=== PATIENT | female | born 1995 | race Caucasian/White ===

== ENCOUNTER 2018-02-01 00:01 | Emergency (ER) | payer BC, SELFPAY ==
[2018-02-01 00:02] VITALS: BP 130/66; PULSE 107; RESP 18; TEMP 36; O2SAT 97; BMI 21.8
--- NOTE | 2018-02-01 00:11 | CT_ITS ---
STUDY: CT ABDOMEN AND PELVIS WITHOUT CONTRAST REASON FOR EXAM: Female, 22 years old. Left flank pain. RADIATION DOSAGE (If Supplied By Facility): CTDIvol = ( 6.12 ) mGy, DLP = ( 313.29 ) mGycm TECHNIQUE: Transaxial images were obtained from the dome of the diaphragm to the symphysis pubis without oral contrast, and without intravenous contrast. Sagittal and coronal images were reconstructed. Individualized dose optimization techniques were used for this CT. COMPARISON: None. FINDINGS: The visualized lung bases are unremarkable. The visualized portions of the heart are within normal limits. Normal liver. Normal gallbladder and extrahepatic biliary system. Normal spleen. Normal pancreas. Normal bilateral adrenal glands. Normal right kidney. Normal left kidney. Normal visualized stomach. Normal small intestine. Normal colon. The appendix is visualized on axial images 113-121 and it appears normal.. Normal abdominal aorta. Normal inferior vena cava. Normal retroperitoneum. Normal urinary bladder. Left ovary is enlarged. There is an approximately 2.4 cm left ovarian cyst. There is a small amount of free fluid in the posterior cul-de-sac of the pelvis. Normal abdominal wall. Normal osseous structures. CT/Abdomen/Pelvis without Cont IMPRESSION: Enlarged left ovary, containing a 2.4 cm left ovarian cyst. Consider follow-up pelvic ultrasound. Small amount of free fluid in the posterior cul-de-sac pelvis. Otherwise, normal noncontrast CT scan. No demonstrated urinary calculi or hydronephrosis. No evidence for diverticulitis or appendicitis. Electronically Signed: Asad Roger MD at 1:53 EST , Service support ,
--- NOTE | 2018-02-01 00:15 | ED.DCSUM_ITS ---
- ER Visit Summary Date of Service: 02/01/18 Chief Complaint: Left flank pain History of Present Illness: The patient is a 22 F presenting with left flank pain. She states it started on Wednesday. She states it started suddenly but gradually worsened. She has nausea with no vomiting. She denies constipation or diarrhea. Denies urinary complaints. Denies vaginal bleeding or discharge. Denies fever. She has not had these symptoms in the past. Denies other complaints. Physical Examination: Vitals are stable. Patient is afebrile. Alert no acute distress. HEENT exam is unremarkable. Neck is supple. Lungs are clear and equal bilaterally. Heart is regular rate and rhythm. Abdomen is soft left lower quadrant tenderness with no rebound or guarding Back: Left CVA tenderness Extremities are unremarkable. Skin is warm and dry. Remainder of exam is unremarkable. Emergency Department Course and Treatment: Patient declined pain medication. Urinalysis shows occult blood, 0-5 white blood cells, 0-5 red blood cells. HCG negative. CT abdomen pelvis shows enlarged left ovary, containing a 2.4 cm left ovarian cyst. Consider follow-up pelvic ultrasound. Small amount of free fluid in the posterior cul-de-sac pelvis. Otherwise, normal noncontrast CT scan. No demonstrated urinary calculi or hydronephrosis. No evidence for diverticulitis or appendicitis. Findings were discussed with the patient and she will follow- up with her [facility]. She is resting comfortably on reevaluation. She is advised to take NSAIDs for pain. Advised return to ED for worsening complaints. Disposition: Discharge home Impression: Left ovarian cyst This note was generated with [employer] dictation software. It may contain incorrect words, spelling, and punctuation that were not noted in review of the chart prior to signing ED Disposition - Plan for ED Patient: Chief Complaint: Flank Pain Referrals: Murtaza Mcclure MD [Primary Care Provider] -
[2018-02-01 00:32] LABS: Color, Urine Yellow (Yellow); Glucose, Dipstick Normal (Normal); Ketone-Dipstick Negative (Negative); Leukocyte Esterase-Dipstick Negative /ul (Negative); Nitrite-Dipstick Negative (Negative); Occult Blood-Urine 50 /ul (Negative); Protein-Dipstick Negative (Negative); Specific Gravity, Urine 1.015 (1.002-1.030); Urine Bilirubin Dipstick Negative (Negative); Urine Clarity Sl. Cloudy (Clear); Urine Urobilinogen Normal (Normal)
[2018-02-01 00:45] LABS: Amorphous Sediment 2+; Bacteria RARE /hpf (None Seen); Mucous, Urine RARE /hpf (<or=2+); Red Blood Cells-Urine 0-5 SEEN /hpf (0-5); Squamous Epithelial Cells - UA 0-5 SEEN /hpf (5-10); White Blood Cells 0-5 SEEN /hpf (0-5)
[2018-02-01 01:02] LABS: Pregnancy, Serum, hCG Quali. NEGATIVE Negative (0-9 Nonpreg)
--- NOTE | 2018-02-01 02:16 | ED.DEP ---
ED Disposition - Plan for ED Patient: Chief Complaint: Flank Pain Instructions: ED Cyst Ovarian Referrals: Murtaza Mcclure MD [Primary Care Provider] -
[2018-02-01 02:25] VITALS: BP 113/71; PULSE 80; RESP 16; O2SAT 95
--- OUTSIDE RECORDS SUMMARY | 2018-03-20 03:54 | XMS RPT_ITS ---
:1995 Author Organization OHIP Care Team Providers Name Role Phone EMELY MCDANIEL Attending Unavailable MARIJA ALVES (HEADWAITER/HEADWAITRESS) Attending Unavailable VANNESSA MEDELLIN (HEADWAITER/HEADWAITRESS) Attending Unavailable AMA MOSS) Attending Unavailable AMA MOSS) Referring Unavailable YOANA HODGES (KIM) Attending Unavailable AMA MOSS) Referring Unavailable CHIP FITZPATRICK (PA) Referring Unavailable TRACIE MURRAY Attending Unavailable EMELY MCDANIEL Attending Unavailable TRACIE MURRAY Referring Unavailable EMELY MCDANIEL Attending Unavailable EMELY MCDANIEL Attending Unavailable uMrtaza Mcclure Primary Care Unavailable Carolee Ceja Attending Unavailable Nabeel Blevins PA-C Attending Unavailable Nabeel Blevins PA-C Referring Unavailable Murtaza Mcclure Primary Care Unavailable PROBLEMS PROBLEMS DATE TYPE CONDITION / CODE ATTENDING STATUS SOURCE 01/31/[address], NA Active [facility] unspecified site / [facility] [place] M67.40(ICD-10) Repository 08/13/2017 Active Pain in left wrist NA Active [facility] / M25.532(ICD-10) [facility] [place] Repository 05/03/2017 Active Unknown / [place] Active [facility] UNK(Unknown) MCCLAIN, [facility] EMELY Repository PROCEDURES PROCEDURES No Procedure Records FoundRESULTS RESULTS CNOV Observed: 03/11/2018 Status: COMPLETED Source: [place] 11:20 AM [facility] REPOSITORY Office Visit (WOOB) TINY GARCIA ([id number]) 1995 F Date Time Provider Department 03/11/18 11:20 AM EMELY MCDANIEL WODERREK During your visit today, we recorded the following information about you: Blood pressure Weight 106/64 59 kg Emely Herrera MD 03/11/2018 11:43 AM Signed Tiny Sharma Jose is a 22 year old female who presents for discussion regarding treatment for endometriosis. Pt reports since last visit has had one episode of severe pain but did not go to ER. Pt reports still has pain with BMs and painful cycles. Pt previously was on ocps and did well. PAST MEDICAL HISTORY Diagnosis Date - Acne - Menarche 2007 7th Grade - Migraines pt reports blurred vision prior to PRICE - PMH - PAST MEDICAL HISTORY OF 11/29/03, --2011 normal color vision - Tobacco use PAST SURGICAL HISTORY Procedure Laterality Date - NONE FAMILY HISTORY Problem Relation Age of Onset - None Mother - None Father - Breast Cancer Maternal Grandmother - Ovarian cancer Maternal Aunt Living Social History Marital status: Single Spouse name: Years of education: Number of children: 0 Occupational History Occupation Employer Comment [employer]* STUDENT Social History Main Topics Smoking status: Former Smoker Packs/day: 0.50 Years: 0.00 Types: Cigarettes Quit date: 03/05/2017 Smokeless tobacco: Never Used Comment: *Currently using E-Cig Alcohol use: No Drug use: No Sexual activity: Yes Partners with: Male Current Outpatient Prescriptions: COMPOUNDED PRESCRIPTION Cock up wrist splint, left. To be worn nightly for wrist pain and numbness. Dx: left wrist pain CALCIUM CARBONATE/VITAMIN D3 (VITAMIN D-3 ORAL) Take by mouth. No current facility-administered medications for this visit. Allergies As of Date: 03/11/2018 (No Known Allergies) Fully Assessed 03/11/2018 REVIEW OF SYSTEMS Abdomen: no pain . Does have pain with BMs Bladder: no dysuria .. Expanded ROS: GENERAL: Negative for fever Allergies and current medication updated:Yes EXAM: BP 106/64 Wt 130 lb (59.0kg) LMP 02/24/2018 GENERAL: pleasant, female in no apparent distress HEENT: atraumatic and mucus membranes moist NECK: full range of motion DERMATOLOGY: Normal, without lesions, non-icteric and non-hirsute NEURO: alert and oriented x3,exam grossly non-focal ASSESSMENT AND PLAN: Encounter Diagnosis ICD-10-CM 1. Dysmenorrhea N94.6 2. Endometrioma N80.9 3. We reviewed mgmt options- discussed that she has not had surgery to confirm this diagnosis but based on exam and history endometriosis is likely diagnosis. We reviewed mgmt including surgical, hormonal or expectant. Pt would like to go back on ocps at this time- will try continuous. We reviewed h/o migraines- pt denies auras- states she only gets blurry vision occasionally during the headache- not prior to, pt denies auras and is not treated by neurologist for headaches. We reviewed contraindication to ocps and migraines with aura- but does not seem this is her case. 4. OCPs - sprintec ordered. Will notify office if any SE 5. If surgical mgmt indicated will send to Specialist like Dr. Shaheed Dailey - reviewed incase of extensive disease and need for resection 6. Repeat ultrasound in March to evaluate endometrioma 7. Call if worsening pain or other concerns Emely Herrera MD Referring Provider: SELF [[id number]] Allergies As of Date: 03/11/2018 (No Known Allergies) Date Reviewed: 03/11/2018 Reviewed by: Liset Hall Ma - Fully Assessed Reason for Visit: Follow Up [171] Primary Visit Diagnosis:Dysmenorrhea [N94.6] Other Visit Diagnosis:Endometrioma [N80.9] Order(s):norgestimate 0.25 mg-ethinyl estradiol 35 mcg (SPRINTEC) 0.25-35 mg-mcg per tabletTake only active pills discard inactive and start new pack immediatleyDisp: 4 PackageRfl: 5 Prescriptions as of 03/11/2018 Sig: NORGESTIMATE 0.25 MG-ETHINYL * Take only active pills discar* COMPOUNDED PRESCRIPTION Cock up wrist splint, left. T* VITAMIN D-3 ORAL Take by mouth. Problem List As Of Date 03/11/2018 Noted Resolved Acne Vulgaris: Inflammatory/Comedonal Grade III*INVALID FOR*07/25/2012 Striae Distensae: lower mid to lower back [L90.*INVALID FOR* Capsulitis [M77.9] INVALID FOR*07/25/2012 Headache [R51] INVALID FOR* Patellar tendinitis [M76.50] INVALID FOR*07/03/2011 Knee pain [M25.569] INVALID FOR*07/03/2011 Arcuate uterus [Q51.810] INVALID FOR* Dysmenorrhea [N94.6] INVALID FOR* Right shoulder pain [M25.511] INVALID FOR* Prescriptions ordered this encounter Disp Refills Start End NORGESTIMATE 0.25 MG-ETHINYL ESTRADI* 4 Pa* 5 03/11/2018 Sig: Take only active pills discard inactive and start new pack immediatley Disposition: Return in about 6 months (around 09/08/2018) for annual . Follow-up and Disposition History Recorded Encounter Status:Closed by EMELY MCCLAIN MD on 03/11/18 PROGRESS Observed: 03/11/2018 Status: COMPLETED Source: [place] 11:16 AM [facility] [place] REPOSITORY O ID: [id number] Author: Emely Mcclain Service: (none) Author Type: Physician Type: Progress Notes Filed: 03/11/2018 11:43 AM Note Text: Tiny Garcia is a 22 year old female who presents for discussion regarding treatment for endometriosis. Pt reports since last visit has had one episode of severe pain but did not go to ER. Pt reports still has pain with BMs and painful cycles. Pt previously was on ocps and did well. PAST MEDICAL HISTORY Diagnosis Date - Acne - Menarche 2007 7th Grade - Migraines pt reports blurred vision prior to PRICE - PMH - PAST MEDICAL HISTORY OF 11/29/03, 6- normal color vision - Tobacco use PAST SURGICAL HISTORY Procedure Laterality Date - NONE FAMILY HISTORY Problem Relation Age of Onset - None Mother - None Father - Breast Cancer Maternal Grandmother - Ovarian cancer Maternal Aunt Living Social History Marital status: Single Spouse name: Years of education: Number of children: 0 Occupational History Occupation Employer Comment [employer]* STUDENT Social History Main Topics Smoking status: Former Smoker Packs/day: 0.50 Years: 0.00 Types: Cigarettes Quit date: 03/05/2017 Smokeless tobacco: Never Used Comment: *Currently using E-Cig Alcohol use: No Drug use: No Sexual activity: Yes Partners with: Male Current Outpatient Prescriptions: COMPOUNDED PRESCRIPTION Cock up wrist splint, left. To be worn nightly for wrist pain and numbness. Dx: left wrist pain CALCIUM CARBONATE/VITAMIN D3 (VITAMIN D-3 ORAL) Take by mouth. No current facility-administered medications for this visit. Allergies As of Date: 03/11/2018 (No Known Allergies) Fully Assessed 03/11/2018 REVIEW OF SYSTEMS Abdomen: no pain . Does have pain with BMs Bladder: no dysuria .. Expanded ROS: GENERAL: Negative for fever Allergies and current medication updated:Yes EXAM: BP 106/64 Wt 130 lb (59.0kg) LMP 02/24/2018 GENERAL: pleasant, female in no apparent distress HEENT: atraumatic and mucus membranes moist NECK: full range of motion DERMATOLOGY: Normal, without lesions, non-icteric and non-hirsute NEURO: alert and oriented x3,exam grossly non-focal ASSESSMENT AND PLAN: Encounter Diagnosis ICD-10-CM 1. Dysmenorrhea N94.6 2. Endometrioma N80.9 3. We reviewed mgmt options- discussed that she has not had surgery to confirm this diagnosis but based on exam and history endometriosis is likely diagnosis. We reviewed mgmt including surgical, hormonal or expectant. Pt would like to go back on ocps at this time- will try continuous. We reviewed h/o migraines- pt denies auras- states she only gets blurry vision occasionally during the headache- not prior to, pt denies auras and is not treated by neurologist for headaches. We reviewed contraindication to ocps and migraines with aura- but does not seem this is her case. 4. OCPs - sprintec ordered. Will notify office if any SE 5. If surgical mgmt indicated will send to Specialist like Dr. Shaheed Dailey - reviewed incase of extensive disease and need for resection 6. Repeat ultrasound in March to evaluate endometrioma 7. Call if worsening pain or other concerns Emely Herrera MD PROGRESS Observed: 02/25/2018 Status: COMPLETED Source: [place] 11:40 AM [facility] REPOSIT[facility] HNO ID: [id number] Author: Emely Mcclain Service: (none) Author Type: Physician Type: Progress Notes Filed: 02/25/2018 11:58 AM Note Text: Tiny Garcia is a 22 year old female who presents for follow up after ultrasound. Pt had CT scan at [facility] 02/01/18 and then ultrasound for 3cm cyst and pelvic pain. Pt reports that today her pain is gone- pt feeling well. Pt reports menses are regular every 28 days- pt reports has h/o ovarian cyst even when taking OCPs previously. Pt declines BC at this time. Pt reports during menses she does have severe pain when having BM- denies constipation or diarrhea. Pt reports pain has been there since she started having menstrual cycles. Pt offers no other concerns today. PAST MEDICAL HISTORY Diagnosis Date - Acne - Menarche 2007 7th Grade - Migraines pt reports blurred vision prior to PRICE - H - PAST MEDICAL HISTORY OF 11/29/03, --2011 normal color vision - Tobacco use PAST SURGICAL HISTORY Procedure Laterality Date - NONE FAMILY HISTORY Problem Relation Age of Onset - None Mother - None Father - Breast Cancer Maternal Grandmother - Ovarian cancer Maternal Aunt Living Social History Marital status: Single Spouse name: Years of education: Number of children: 0 Occupational History Occupation Employer Comment [employer]* STUDENT Social History Main Topics Smoking status: Former Smoker Packs/day: 0.50 Years: 0.00 Types: Cigarettes Quit date: 03/05/2017 Smokeless tobacco: Never Used Comment: *Currently using E-Cig Alcohol use: No Drug use: No Sexual activity: Yes Partners with: Male Current Outpatient Prescriptions: COMPOUNDED PRESCRIPTION Cock up wrist splint, left. To be worn nightly for wrist pain and numbness. Dx: left wrist pain CALCIUM CARBONATE/VITAMIN D3 (VITAMIN D-3 ORAL) Take by mouth. No current facility-administered medications for this visit. Allergies As of Date: 02/25/2018 (No Known Allergies) Fully Assessed 02/02/2018 REVIEW OF SYSTEMS Abdomen: pain with BM during menses only. Bladder: no dysuria .. Expanded ROS: GENERAL: negative pain Allergies and current medication updated:Yes EXAM: BP 112/64 Wt 132 lb (59.9kg) LMP 02/24/2018 GENERAL: pleasant, female in no apparent distress HEENT: Normocephalic and atraumatic NECK: full range of motion DERMATOLOGY: Normal, without lesions, non-icteric and non-hirsute NEURO: alert and oriented x3,exam grossly non-focal ASSESSMENT AND PLAN: Encounter Diagnosis ICD-10-CM 1. Ovarian cyst, left N83.202 2. Dyschezia K59.00 3. Ultrasound results reviewed- possible endometrioma- ?? ENDOMETRIOSIS which could be cause of painful BM during menses. We reviewed hormonal therapy for possible Endometriosis- pt declines any type of hormonal treatment at this time. 4. Has repeat ultrasound scheduled in 8-12 weeks 5. Call if worsening symptoms Emely Herrera MD CNOV Observed: 02/25/2018 Status: COMPLETED Source: [place] 11:40 AM [facility] REPOSITORY Office Visit (WOOB) TINY GARCIA ([id number]) 1995 F Date Time Provider Department 02/25/18 11:40 AM EMELY MCDANIEL WOOB During your visit today, we recorded the following information about you: Blood pressure Weight Last Period 112/64 59.9 kg 02/24/18 Emely Herrera MD 02/25/2018 11:58 AM Signed Tiny Sharma Jose is a 22 year old female who presents for follow up after ultrasound. Pt had CT scan at [facility] 02/01/18 and then ultrasound for 3cm cyst and pelvic pain. Pt reports that today her pain is gone- pt feeling well. Pt reports menses are regular every 28 days- pt reports has h/o ovarian cyst even when taking OCPs previously. Pt declines BC at this time. Pt reports during menses she does have severe pain when having BM- denies constipation or diarrhea. Pt reports pain has been there since she started having menstrual cycles. Pt offers no other concerns today. PAST MEDICAL HISTORY Diagnosis Date - Acne - Menarche 2007 7th Grade - Migraines pt reports blurred vision prior to PRICE - PMH - PAST MEDICAL HISTORY OF 11/29/03, --2011 normal color vision - Tobacco use PAST SURGICAL HISTORY Procedure Laterality Date - NONE FAMILY HISTORY Problem Relation Age of Onset - None Mother - None Father - Breast Cancer Maternal Grandmother - Ovarian cancer Maternal Aunt Living Social History Marital status: Single Spouse name: Years of education: Number of children: 0 Occupational History Occupation Employer Comment [employer]* STUDENT Social History Main Topics Smoking status: Former Smoker Packs/day: 0.50 Years: 0.00 Types: Cigarettes Quit date: 03/05/2017 Smokeless tobacco: Never Used Comment: *Currently using E-Cig Alcohol use: No Drug use: No Sexual activity: Yes Partners with: Male Current Outpatient Prescriptions: COMPOUNDED PRESCRIPTION Cock up wrist splint, left. To be worn nightly for wrist pain and numbness. Dx: left wrist pain CALCIUM CARBONATE/VITAMIN D3 (VITAMIN D-3 ORAL) Take by mouth. No current facility-administered medications for this visit. Allergies As of Date: 02/25/2018 (No Known Allergies) Fully Assessed 02/02/2018 REVIEW OF SYSTEMS Abdomen: pain with BM during menses only. Bladder: no dysuria .. Expanded ROS: GENERAL: negative pain Allergies and current medication updated:Yes EXAM: BP 112/64 Wt 132 lb (59.9kg) LMP 02/24/2018 GENERAL: pleasant, female in no apparent distress HEENT: Normocephalic and atraumatic NECK: full range of motion DERMATOLOGY: Normal, without lesions, non-icteric and non-hirsute NEURO: alert and oriented x3,exam grossly non-focal ASSESSMENT AND PLAN: Encounter Diagnosis ICD-10-CM 1. Ovarian cyst, left N83.202 2. Dyschezia K59.00 3. Ultrasound results reviewed- possible endometrioma- ?? ENDOMETRIOSIS which could be cause of painful BM during menses. We reviewed hormonal therapy for possible Endometriosis- pt declines any type of hormonal treatment at this time. 4. Has repeat ultrasound scheduled in 8-12 weeks 5. Call if worsening symptoms Emely Herrera MD Referring Provider: SELF [[id number]] Allergies As of Date: 02/25/2018 (No Known Allergies) Date Reviewed: 02/25/2018 Reviewed by: Liset Hall Ma - Fully Assessed Reason for Visit: Follow Up [171] Primary Visit Diagnosis:Ovarian cyst, left [N83.202] Other Visit Diagnosis:Dyschezia [K59.00] Prescriptions as of 02/25/2018 Sig: COMPOUNDED PRESCRIPTION Cock up wrist splint, left. T* VITAMIN D-3 ORAL Take by mouth. Problem List As Of Date 02/25/2018 Noted Resolved Acne Vulgaris: Inflammatory/Comedonal Grade III*INVALID FOR*07/25/2012 Striae Distensae: lower mid to lower back [L90.*INVALID FOR* Capsulitis [M77.9] INVALID FOR*07/25/2012 Headache [R51] INVALID FOR* Patellar tendinitis [M76.50] INVALID FOR*07/03/2011 Knee pain [M25.569] INVALID FOR*07/03/2011 Arcuate uterus [Q51.810] INVALID FOR* Dysmenorrhea [N94.6] INVALID FOR* Right shoulder pain [M25.511] INVALID FOR* Encounter Status:Closed by EMELY MCCLAIN MD on 02/25/18 CNOV Observed: 02/02/2018 Status: COMPLETED Source: [place] 11:00 AM [facility] REPOSITORY Office Visit (WOOB) TINY GARCIA ([id number]) 1995 F Date Time Provider Department 02/02/18 11:00 AM TRACIE MURRAY During your visit today, we recorded the following information about you: Blood pressure Weight Last Period 114 59.5 kg 01/27/18 Tracie Murray MD 02/02/2018 11:48 AM Signed Tinycorinna Garcia is a 22 year old female who presents as a new patient for an ovarian cyst. HPI: Went to the ED yesterday on 02/01/18 for left flank pain. CTAP showed a 2.4 cm left ovarian cyst. Preg test negative. Pain started 4 days ago. Worsening. Describes it as a sharp pain. Located in LLQ and radiating into left flank and back. Constant pain. Nothing makes the pain better or worse. +Nausea, no vomiting. Tolerating PO. Has a good appetite. No fevers, chills, diarrhea, constipation, dysuria. Currently sexually active. Not using control. Trying to conceive. Has been trying to conceive for 10 months per chart review. G0. Partner does not have any children. Was on OCP's in the past. Cycles 28-30 day cycles. Bleeding lasts 4-5 days, heavy flow. PAST MEDICAL HISTORY Diagnosis Date - Acne - Menarche 2007 7th Grade - Migraines pt reports blurred vision prior to PRICE - PMH - PAST MEDICAL HISTORY OF 11/29/03, 07-26-2011 normal color vision - Tobacco use PAST SURGICAL HISTORY Procedure Laterality Date - NONE FAMILY HISTORY Problem Relation Age of Onset - None Mother - None Father - Breast Cancer Maternal Grandmother - Ovarian cancer Maternal Aunt Living Social History Marital status: Single Spouse name: Years of education: Number of children: 0 Occupational History Occupation Employer Comment [employer]* STUDENT Social History Main Topics Smoking status: Former Smoker Packs/day: 0.50 Years: 0.00 Types: Cigarettes Quit date: 03/05/2017 Smokeless tobacco: Never Used Comment: *Currently using E-Cig Alcohol use: No Drug use: No Sexual activity: Yes Partners with: Male Current Outpatient Prescriptions: CALCIUM CARBONATE/VITAMIN D3 (VITAMIN D-3 ORAL) Take by mouth. COMPOUNDED PRESCRIPTION Cock up wrist splint, left. To be worn nightly for wrist pain and numbness. Dx: left wrist pain No current facility-administered medications for this visit. Allergies As of Date: 02/02/2018 (No Known Allergies) Fully Assessed 02/02/2018 REVIEW OF SYSTEMS Abdomen: + abdominal pain, nausea. Denies vomiting, diarrhea, or constipation. Bladder: No dysuria, gross hematuria, urinary frequency, urinary urgency. Tomographic Tech: No bleeding or discharge. Expanded ROS: N/A Allergies and current medication updated:Yes EXAM: BP 114/74 Wt 131 lb 3.2 oz (59.5kg) LMP 01/27/2018 GENERAL: pleasant, female in no apparent distress HEENT: Normocephalic and atraumatic NECK: full range of motion DERMATOLOGY: Normal and without lesions CHEST: Normal inspiratory effort ABDOMEN: soft and no masses, +tenderness in LLQ, no rebounding, no guarding, no rigidity NEURO: exam grossly non-focal EXTREMITIES: normal ASSESSMENT AND PLAN: Encounter Diagnosis ICD-10-CM 1. Adnexal cyst N94.9 PELVIC US WHI 2. LLQ pain R10.32 PELVIC US WHI ? Pt well appearing and abdominal exam is not acute today ? CTAP in ED yesterday showed 2.4 cm left ovarian cyst ? Ordered pelvic US ? Discussed Tylenol, Motrin, heat for pain control ? Reviewed return precautions ? Will call with US results and further follow up DO Tracie Nevarez MD 02/04/2018 9:20 AM Signed Addended by: TRACIE MURRAY MD on: 02/04/2018 09:20 AM Modules accepted: Orders Referring Provider: SELF [[id number]] Allergies As of Date: 02/02/2018 (No Known Allergies) Date Reviewed: 02/02/2018 Reviewed by: Tracie Murray - Fully Assessed Reason for Visit: Ovarian Cyst [288] Primary Visit Diagnosis:Adnexal cyst [N94.9] Other Visit Diagnosis:LLQ pain [R10.32] Order(s):PELVIC US WHI [[id number]] Order #: [id number]. #:[id number]: 1 PELVIC US WHI [[id number]] Order #: [id number]: 1 FUTURE PELVIC US WHI [[id number]] Order #: [id number]: 1 Prescriptions as of 02/02/2018 Sig: VITAMIN D-3 ORAL Take by mouth. COMPOUNDED PRESCRIPTION Cock up wrist splint, left. T* Problem List As Of Date 02/02/2018 Noted Resolved Acne Vulgaris: Inflammatory/Comedonal Grade III*INVALID FOR*07/25/2012 Striae Distensae: lower mid to lower back [L90.*INVALID FOR* Capsulitis [M77.9] INVALID FOR*07/25/2012 Headache [R51] INVALID FOR* Patellar tendinitis [M76.50] INVALID FOR*07/03/2011 Knee pain [M25.569] INVALID FOR*07/03/2011 Arcuate uterus [Q51.810] INVALID FOR* Dysmenorrhea [N94.6] INVALID FOR* Right shoulder pain [M25.511] INVALID FOR* Level of Service: EST PATIENT VISIT LEVEL 3 [[id number]] Follow-up and Disposition History Recorded Letter Text Tracie Murray DO [facility] [address], [place] [address] 02/02/2018 RE: Tiny Garcia To Whom It May Concern: Tiny Garcia was absent from work on 02/02/2018 due to medical reasons and may return on 02/03/2018. Thank you for your understanding in this matter. Sincerely, Tracie Murray DO Encounter Status:Closed by TRACIE MURRAY MD on 02/02/18 PROGRESS Observed: 02/02/2018 Status: COMPLETED Source: [facility] 10:56 AM [facility] HNO ID: [id number] Author: Tracie Murray Service: (none) Author Type: Physician Type: Progress Notes Filed: 02/02/2018 11:48 AM Note Text: Tiny Garcia is a 22 year old female who presents as a new patient for an ovarian cyst. HPI: Went to the ED yesterday on 02/01/18 for left flank pain. CTAP showed a 2.4 cm left ovarian cyst. Preg test negative. Pain started 4 days ago. Worsening. Describes it as a sharp pain. Located in LLQ and radiating into left flank and back. Constant pain. Nothing makes the pain better or worse. +Nausea, no vomiting. Tolerating PO. Has a good appetite. No fevers, chills, diarrhea, constipation, dysuria. Currently sexually active. Not using control. Trying to conceive. Has been trying to conceive for 10 months per chart review. G0. Partner does not have any children. Was on OCP's in the past. Cycles 28-30 day cycles. Bleeding lasts 4-5 days, heavy flow. PAST MEDICAL HISTORY Diagnosis Date - Acne - Menarche 2007 7th Grade - Migraines pt reports blurred vision prior to PRICE - PMH - PAST MEDICAL HISTORY OF 11/29/03, 07-27-2011 normal color vision - Tobacco use PAST SURGICAL HISTORY Procedure Laterality Date - NONE FAMILY HISTORY Problem Relation Age of Onset - None Mother - None Father - Breast Cancer Maternal Grandmother - Ovarian cancer Maternal Aunt Living Social History Marital status: Single Spouse name: Years of education: Number of children: 0 Occupational History Occupation Employer Comment [employer]* STUDENT Social History Main Topics Smoking status: Former Smoker Packs/day: 0.50 Years: 0.00 Types: Cigarettes Quit date: 03/05/2017 Smokeless tobacco: Never Used Comment: *Currently using E-Cig Alcohol use: No Drug use: No Sexual activity: Yes Partners with: Male Current Outpatient Prescriptions: CALCIUM CARBONATE/VITAMIN D3 (VITAMIN D-3 ORAL) Take by mouth. COMPOUNDED PRESCRIPTION Cock up wrist splint, left. To be worn nightly for wrist pain and numbness. Dx: left wrist pain No current facility-administered medications for this visit. Allergies As of Date: 02/02/2018 (No Known Allergies) Fully Assessed 02/02/2018 REVIEW OF SYSTEMS Abdomen: + abdominal pain, nausea. Denies vomiting, diarrhea, or constipation. Bladder: No dysuria, gross hematuria, urinary frequency, urinary urgency. Tomographic Tech: No bleeding or discharge. Expanded ROS: N/A Allergies and current medication updated:Yes EXAM: BP 114/74 Wt 131 lb 3.2 oz (59.5kg) LMP 01/27/2018 GENERAL: pleasant, female in no apparent distress HEENT: Normocephalic and atraumatic NECK: full range of motion DERMATOLOGY: Normal and without lesions CHEST: Normal inspiratory effort ABDOMEN: soft and no masses, +tenderness in LLQ, no rebounding, no guarding, no rigidity NEURO: exam grossly non-focal EXTREMITIES: normal ASSESSMENT AND PLAN: Encounter Diagnosis ICD-10-CM 1. Adnexal cyst N94.9 PELVIC US WHI 2. LLQ pain R10.32 PELVIC US WHI ? Pt well appearing and abdominal exam is not acute today ? CTAP in ED yesterday showed 2.4 cm left ovarian cyst ? Ordered pelvic US ? Discussed Tylenol, Motrin, heat for pain control ? Reviewed return precautions ? Will call with US results and further follow up Tracie Murray, DO DISCHARGE INSTRUCTION Observed: 02/01/2018 Status: F Source: [place] 2:17 AM [facility] REPOSITORY [facility] Medical Records Department [address] [place] [address] Discharge Instruction 02/01/186 MR#: [id number] Acct: [id number] Name: ABBIETINY DOZIER Edith Rep #: [id number] : 1995 22 From: Carolee Ceja MD PCP: Murtaza Mcclure MD Status: REG ER ED Disposition - Plan for ED Patient: Chief Complaint: Flank Pain Instructions: ED Cyst Ovarian Referrals: Murtaza Mcclure MD [Primary Care Provider] - What to do if you have Problems For any increased pain, shortness of breath, bleeding, nausea or vomiting, chest pain, or any unexpected problems, contact your Primary Care Provider. Call [facility] ([phone]) or report to the closest Emergency Room. Call 911 if necessary. 02/01/18216 <Electronically signed by Carolee Ceja MD> Date Carolee Ceja MD Cosigner Signature (If Indicated): Date CC: Murtaza Mcclure MD EMERGENCY DEPARTMENT Observed: 02/01/2018 Status: F Source: [place] SUMMARY 2:16 AM [facility] Medical Records Department [address] [place] [address] Emergency Department Summary 02/01/18 0013 MR#: [id number] Acct: [id number] Name: TINY GARCIA Rep #: [id number] : 1995 22 From: Carolee Ceja MD PCP: Murtaza Mcclure MD Status: REG ER - ER Visit Summary Date of Service: 02/01/18 Chief Complaint: Left flank pain History of Present Illness: The patient is a 22 F presenting with left flank pain. She states it started on Wednesday. She states it started suddenly but gradually worsened. She has nausea with no vomiting. She denies constipation or diarrhea. Denies urinary complaints. Denies vaginal bleeding or discharge. Denies fever. She has not had these symptoms in the past. Denies other complaints. Physical Examination: Vitals are stable. Patient is afebrile. Alert no acute distress. HEENT exam is unremarkable. Neck is supple. Lungs are clear and equal bilaterally. Heart is regular rate and rhythm. Abdomen is soft left lower quadrant tenderness with no rebound or guarding Back: Left CVA tenderness Extremities are unremarkable. Skin is warm and dry. Remainder of exam is unremarkable. Emergency Department Course and Treatment: Patient declined pain medication. Urinalysis shows occult blood, 0-5 white blood cells, 0-5 red blood cells. HCG negative. CT abdomen pelvis shows enlarged left ovary, containing a 2.4 cm left ovarian cyst. Consider follow-up pelvic ultrasound. Small amount of free fluid in the posterior cul-de-sac pelvis. Otherwise, normal noncontrast CT scan. No demonstrated urinary calculi or hydronephrosis. No evidence for diverticulitis or appendicitis. Findings were discussed with the patient and she will follow-up with her EDI CONSULTANT. She is resting comfortably on reevaluation. She is advised to take NSAIDs for pain. Advised return to ED for worsening complaints. Disposition: Discharge home Impression: Left ovarian cyst This note was generated with Gobbler dictation software. It may contain incorrect words, spelling, and punctuation that were not noted in review of the chart prior to signing ED Disposition - Plan for ED Patient: Chief Complaint: Flank Pain Referrals: Murtaza Mcclure MD [Primary Care Provider] - What to do if you have Problems For any increased pain, shortness of breath, bleeding, nausea or vomiting, chest pain, or any unexpected problems, contact your Primary Care Provider. Call [facility] ([phone]) or report to the closest Emergency Room. Call 911 if necessary. 02/01/18 0216 <Electronically signed by Carolee Ceja MD> Date Carolee Ceja MD Cosigner Signature (If Indicated): Date CC: Murtaza Mcclure MD ,SERUM,HCG QUALI. Collected: Status: F Source: [place] 02/01/2018 12:28 AM [facility] REPOSITORY TYPE CODE TESTS RESULT OUT OF REFERENCE UNITS RANGE LAB L700.7000 0-9 Nonpreg Negative Normal HCGSQUAL NEGATIVE LAB L700.6700 =>Qualitative mIU/mL Normal HCG Qual < 1 triggr Performed By: #### L700.6800 #### [facility] [address] [place], [place], [address] URINALYSIS, COMPLETE Collected: 02/01/2018 Status: F Source: [place] 12:25 AM [facility] REPOSITORY Order Comment: Order Date: 02/01/18 How was Urine Obtained? SHELVING SUPERVISOR TO SPECIFY TYPE CODE TESTS RESULT OUT OF RANGE REFERENCE UNITS LAB L400.3000 Yellow COLOR Normal Yellow LAB L400.3050 Clear Normal CLARITY Sl. Cloudy LAB L400.3200 Normal mg/dl Normal GLUCOSE, UR Normal LAB L400.3300 Negative mg/dL Normal BILIRUBIN URINE Negative LAB L400.3400 Negative mg/dl Normal KETONE UR Negative LAB L400.3465 1.002-1.030 Normal SP.GR. DIPSTX 1.015 LAB L400.3550 5.0 - 8.0 pH UR Normal 7.0 LAB L400.3600 Negative mg/dl PROT Normal DIPSTX Negative LAB L400.3700 Normal mg/dl Normal UROBILI Normal LAB L400.3750 Negative Normal NITRITE UR Negative LAB L400.3780 Negative /ul High 50 OCCULT BLOOD-UR LAB L400.3800 Negative /ul LEUK Normal ESTERASE Negative LAB L400.4050 0-5 /hpf WBC Normal 0-5 SEEN LAB L400.4100 0-5 /hpf Normal RBC-UA 0-5 SEEN LAB L400.4150 5-10 /hpf SQUAM Normal EPI 0-5 SEEN LAB L400.4300 None Seen /hpf Normal BACTERIA RARE LAB L400.4350 <or=2+ /hpf Normal MUCUS, URINE RARE LAB L400.4900 2+ Normal AMORPHOUS Performed By: #### L400.0001 #### [facility] [address] [place], [address] ABDOMEN/PELVIS WITHOUT Observed: 02/01/2018 Status: F Source: [place] CONT 12:12 AM [facility] REPOSITORY [facility] Imaging Services [address] [place] [address] Abdomen/Pelvis without Cont MR#: [id number] Acct: [id number] Name: TINY GARCIA Rep #: [id number] : 1995 F 22 From: Asad Roger MD PCP: Murtaza Mcclure MD Status: REG ER Study: Abdomen/Pelvis without Cont Date of Exam: 02/01/18 Exam# [id number] Ordering Dr: Carolee Ceja MD STUDY: CT ABDOMEN AND PELVIS WITHOUT CONTRAST REASON FOR EXAM: Female, 22 years old. Left flank pain. RADIATION DOSAGE (If Supplied By Facility): CTDIvol = ( 6.12 ) mGy, DLP = ( 313.29 ) mGycm TECHNIQUE: Transaxial images were obtained from the dome of the diaphragm to the symphysis pubis without oral contrast, and without intravenous contrast. Sagittal and coronal images were reconstructed. Individualized dose optimization techniques were used for this CT. COMPARISON: None. FINDINGS: The visualized lung bases are unremarkable. The visualized portions of the heart are within normal limits. Normal liver. Normal gallbladder and extrahepatic biliary system. Normal spleen. Normal pancreas. Normal bilateral adrenal glands. Normal right kidney. Normal left kidney. Normal visualized stomach. Normal small intestine. Normal colon. The appendix is visualized on axial images 113-121 and it appears normal.. Normal abdominal aorta. Normal inferior vena cava. Normal retroperitoneum. Normal urinary bladder. Left ovary is enlarged. There is an approximately 2.4 cm left ovarian cyst. There is a small amount of free fluid in the posterior cul-de-sac of the pelvis. Normal abdominal wall. Normal osseous structures. CT/Abdomen/Pelvis without Cont IMPRESSION: Enlarged left ovary, containing a 2.4 cm left ovarian cyst. Consider follow-up pelvic ultrasound. Small amount of free fluid in the posterior cul-de-sac pelvis. Otherwise, normal noncontrast CT scan. No demonstrated urinary calculi or hydronephrosis. No evidence for diverticulitis or appendicitis. Electronically Signed: Asad Rgoer MD at 1:53 EST , Service support , CC: Carolee Ceja MD; Murtaza Mcclure MD Rotating Equipment Specialist: Signed XR WRIST 3V PA/LAT/OBL Observed: 01/31/2018 Status: F Source: [facility] 1:29 PM [facility] REPOSITORY * * *Final Report* * * DATE OF EXAM: Jan 31 2018 1:29PM WOX [id number] - XR WRIST 3V PA/LAT/OBL LT / PROCEDURE REASON: multiple diagnoses * * * * Physician Interpretation * * * * HISTORY: Posterior lump over left wrist TECHNIQUE: 3 views COMPARISON: 08/13/2017 RESULT: No bony or joint abnormalities or obvious soft tissue mass or opacity is noted. IMPRESSION: Unremarkable study Rotating Equipment Specialist: LINNEA Transcribe Date/Time: Jan 31 2018 1:48P Dictated by : KALE SCOTT MD This examination was interpreted and the report reviewed and electronically signed by: KALE SCOTT MD on Jan 31 2018 1:50PM EST [id number] Observed: 01/31/2018 Status: COMPLETED Source: [place] 1:20 PM [facility] REPOSITORY HNO ID: [id number] Author: Magen Esteban (Rt) Feli Hirsch Service: (none) Author Type: Inspector Final Assembly Electrical Type: Progress Notes Filed: 01/31/2018 1:30 PM Note Text: Radiology Service Progress Note PATIENT NAME: Tiny Garcia DATE OF SERVICE: January 31, 2018 TIME: 1:20 PM PATIENT IDENTITY VERIFICATION COMPLETED USING TWO (2) METHODS: Patient confirmed name verbally and Date of . PATIENT GENDER DATA: Female. status: : No status: NO. PATIENT RELEVANT IMPLANT DATA REVIEWED: Not Applicable RADIOLOGY DEPARTMENT: General X-ray: Exam(s) Completed: Upper Extremity X-Ray(s): Wrist, left : PERIPHERAL IV DATA: Not applicable SIGNED BY: RT Julian January 31, 2018 1:20 PM PROGRESS Observed: 01/30/2018 Status: COMPLETED Source: [place] 1:16 PM [facility] REPOSITORY HNO ID: [id number] Author: Chip Vo) Alex Service: (none) Author Type: Physician Weatherization Administrator Type: Progress Notes Filed: 01/30/2018 1:18 PM Note Text: Subjective HPI Patient presents with a chief complaint of a bump on her left wrist over the past week. She states she was cracking her wrist when she started developing pain in the wrist. She denies any fall or known injury. She did have some tendinitis in the wrist over the summer. This feels different however. No numbness or tingling. No elbow pain. No other complaints. Review of Systems Musculoskeletal: Left wrist pain All other systems reviewed and are negative. PAST MEDICAL HISTORY Diagnosis Date - Acne - Menarche 2008 7th Grade - Migraines - PMH - PAST MEDICAL HISTORY OF 11/29/03, 07-27-2011 normal color vision - Tobacco use Current Outpatient Prescriptions: COMPOUNDED PRESCRIPTION Cock up wrist splint, left. To be worn nightly for wrist pain and numbness. Dx: left wrist pain Disp: 1 Device Rfl: 0 CALCIUM CARBONATE/VITAMIN D3 (VITAMIN D-3 ORAL) Take by mouth. Disp: Rfl: No current facility-administered medications for this visit. PAST SURGICAL HISTORY Procedure Laterality Date - NONE FAMILY HISTORY Problem Relation Age of Onset - None Mother - None Father - Breast Cancer Maternal Grandmother Social History Substance Use Topics - Smoking status: Former Smoker Packs/day: 0.50 Types: Cigarettes Quit date: 03/05/2017 - Smokeless tobacco: Never Used Comment: *Currently using E-Cig - Alcohol use No BP 112/80 Pulse 76 Temp 37 ?C (98.6 ?F) (Tympanic) Resp 14 Wt 59.2 kg (130 lb 9.6 oz) BMI 20.45 kg/m? Objective Physical Exam Constitutional: She is well-developed, well-nourished, and in no distress. HENT: Head: Normocephalic and atraumatic. Cardiovascular: Normal rate, regular rhythm and normal heart sounds. Pulmonary/Chest: Breath sounds normal. Musculoskeletal: Exam of the left wrist reveals a nodule over the ventral wrist consistent with likely a ganglion cyst. No redness or warmth. She is tender on palpation. She has foreign range of motion of the wrist. No snuffbox tenderness. No swelling. Hand grasp strength. Distal sensation normal. Radial pulse 2+. Skin: Skin is warm and dry. No rash noted. Psychiatric: Affect and judgment normal. Nursing note and vitals reviewed. ASSESSMENT/PLAN: 1. Ganglion cyst - ICD9: 727.43, ICD10: M67.40 (primary diagnosis) The lump on the wrist likely is a ganglion cyst. She states it had developed suddenly however after she had cracked her wrist I did order an x-ray. X-ray is not in today's she will come back tomorrow. She does have a wrist splint at home and instructed her to wear that for comfort over the next week. Rest, ice, ibuprofen for pain. I did place a consult orthopedics if it's not improving over the next week. She is agreeable to this. - XR WRIST GENERAL 3V PA/LAT/OBL LT - CONSULT TO ORTHOPAEDICS 2. Left wrist pain - ICD9: 719.43, ICD10: M25.532 - XR WRIST GENERAL 3V PA/LAT/OBL LT - CONSULT TO ORTHOPAEDICS Chip Fitzpatrick PA-C CNOV Observed: 01/30/2018 Status: COMPLETED Source: [place] 12:45 PM [facility] REPOSITORY Office Visit ([facility]) TINY GARCIA ([id number]) 1995 F Date Time Provider Department 01/30/18 12:45 PM CHIP FITZPATRICK (FEDE) [facility] During your visit today, we recorded the following information about you: Temperature Pulse Respiration Blood pressure 98.6 degrees 76/minute 14/minute 112/80 Weight 59.2 kg Chip Fitzpatrick PA-C 01/30/2018 1:18 PM Signed Subjective HPI Patient presents with a chief complaint of a bump on her left wrist over the past week. She states she was cracking her wrist when she started developing pain in the wrist. She denies any fall or known injury. She did have some tendinitis in the wrist over the summer. This feels different however. No numbness or tingling. No elbow pain. No other complaints. Review of Systems Musculoskeletal: Left wrist pain All other systems reviewed and are negative. PAST MEDICAL HISTORY Diagnosis Date - Acne - Menarche 2007 7th Grade - Migraines - PMH - PAST MEDICAL HISTORY OF 11/29/03, 07-27-2011 normal color vision - Tobacco use Current Outpatient Prescriptions: COMPOUNDED PRESCRIPTION Cock up wrist splint, left. To be worn nightly for wrist pain and numbness. Dx: left wrist pain Disp: 1 Device Rfl: 0 CALCIUM CARBONATE/VITAMIN D3 (VITAMIN D-3 ORAL) Take by mouth. Disp: Rfl: No current facility-administered medications for this visit. PAST SURGICAL HISTORY Procedure Laterality Date - NONE FAMILY HISTORY Problem Relation Age of Onset - None Mother - None Father - Breast Cancer Maternal Grandmother Social History Substance Use Topics - Smoking status: Former Smoker Packs/day: 0.50 Types: Cigarettes Quit date: 03/05/2017 - Smokeless tobacco: Never Used Comment: *Currently using E-Cig - Alcohol use No BP 112/80 Pulse 76 Temp 37 ?C (98.6 ?F) (Tympanic) Resp 14 Wt 59.2 kg (130 lb 9.6 oz) BMI 20.45 kg/m? Objective Physical Exam Constitutional: She is well-developed, well-nourished, and in no distress. HENT: Head: Normocephalic and atraumatic. Cardiovascular: Normal rate, regular rhythm and normal heart sounds. Pulmonary/Chest: Breath sounds normal. Musculoskeletal: Exam of the left wrist reveals a nodule over the ventral wrist consistent with likely a ganglion cyst. No redness or warmth. She is tender on palpation. She has foreign range of motion of the wrist. No snuffbox tenderness. No swelling. Hand grasp strength. Distal sensation normal. Radial pulse 2+. Skin: Skin is warm and dry. No rash noted. Psychiatric: Affect and judgment normal. Nursing note and vitals reviewed. ASSESSMENT/PLAN: 1. Ganglion cyst - ICD9: 727.43, ICD10: M67.40 (primary diagnosis) The lump on the wrist likely is a ganglion cyst. She states it had developed suddenly however after she had cracked her wrist I did order an x-ray. X-ray is not in today's she will come back tomorrow. She does have a wrist splint at home and instructed her to wear that for comfort over the next week. Rest, ice, ibuprofen for pain. I did place a consult orthopedics if it's not improving over the next week. She is agreeable to this. - XR WRIST GENERAL 3V PA/LAT/OBL LT - CONSULT TO ORTHOPAEDICS 2. Left wrist pain - ICD9: 719.43, ICD10: M25.532 - XR WRIST GENERAL 3V PA/LAT/OBL LT - CONSULT TO ORTHOPAEDICS Chip Fitzpatrick PA-C Referring Provider: SELF [[id number]] Allergies As of Date: 01/30/2018 (No Known Allergies) Date Reviewed: 01/30/2018 Reviewed by: Lois Crabtree Ma - Fully Assessed Reason for Visit: Wrist Pain [1580] Cmt: bump x1 wk Primary Visit Diagnosis:Ganglion cyst [M67.40] Other Visit Diagnosis:Left wrist pain [M25.532] Order(s):XR WRIST GENERAL 3V PA/LAT/OBL LT [8545155] Order #: [id number] FUTURE CONSULT TO ORTHOPAEDICS [9026] Order #: [id number]: 1 Prescriptions as of 01/30/2018 Sig: COMPOUNDED PRESCRIPTION Cock up wrist splint, left. T* VITAMIN D-3 ORAL Take by mouth. Problem List As Of Date 01/30/2018 Noted Resolved Acne Vulgaris: Inflammatory/Comedonal Grade III*INVALID FOR*07/25/2012 Striae Distensae: lower mid to lower back [L90.*INVALID FOR* Capsulitis [M77.9] INVALID FOR*07/25/2012 Headache [R51] INVALID FOR* Patellar tendinitis [M76.50] INVALID FOR*07/03/2011 Knee pain [M25.569] INVALID FOR*07/03/2011 Arcuate uterus [Q51.810] INVALID FOR* Dysmenorrhea [N94.6] INVALID FOR* Right shoulder pain [M25.511] INVALID FOR* Encounter Status:Closed by CHIP FITZPATRICK PA-C on 01/30/18 PROGRESS Observed: 01/24/2018 Status: COMPLETED Source: [place] 11:07 AM [facility] REPOSITORY HNO ID: [id number] Author: Yoana Sanchez) Podlogar Service: (none) Author Type: Nurse Practitioner Type: Progress Notes Filed: 01/24/2018 2:41 PM Note Text: 01/24/2018 Patient presents with: Pain: rt knee pain for about a month ,history of old injury SUBJECTIVE: This is a 22 year old that is here today for Above Complaints. Also has concern for abdominal pain. Knee pain: ONSET: has had on/off for years- worse last 6 month LOCATION: right front knee- pain at worst 11/01 right know 2/10 DURATION: continious CHARACTERISTICS: tight feeling, feeling like it is going to give out AGGRAVATING FEATURES:walking ALLEVIATING FEATURES: ice, wearing a brace RADIATION: none TIMING:no specific Denies fever, chills, knee surgeries, joint redness, warmth, or swelling. Positive for falling on knee in highschool and went to therapy for it. Has had right lower quadrant pain for about 6 months. Pain described as a quick sharp intermittent pain. No aggravating features. Has not used anything for pain relief as she reports it comes and goes quickly. Reports is 2-3 days late for period- chance of . Denies weight loss, fevers, chills, SOB, dyspnea, chest pain, nausea, vomiting, diarrhea, hematochezia, melena, vaginal discharge, dysuria, and hematuria. Positive for constipation during period, otherwise normal BM daily. Component Latest Ref Rng AND Units 01/24/2018 GLUCOSE UA (POCT) Negative mg/dL Negative BILIRUBIN UA (POCT) Negative Negative KETONE UA (POCT) Negative mg/dL Negative SPECIFIC GRAVITY UA (POCT) 1.005 - 1.030 1.025 HEMOGLOBIN/BLOOD UA (POCT) Negative Trace-intact (A) PH UA (POCT) 4.5 - 8.0 6.0 PROTEIN UA (POCT) Negative mg/dL Negative UROBILINOGEN UA (POCT) Normal E.U./dL 0.2 NITRITE UA (POCT) Negative Negative LEUKOCYTES UA (POCT) Negative Negative COLOR UA (POCT) Yellow CLARITY UA (POCT) Clear PAST MEDICAL HISTORY Diagnosis Date - Acne - Menarche 2008 7th Grade - Migraines - PMH - PAST MEDICAL HISTORY OF 11/29/03, 07-27-2011 normal color vision - Tobacco use ALLERGIES Patient has no known allergies. MEDICATIONS Current Outpatient Prescriptions: COMPOUNDED PRESCRIPTION Cock up wrist splint, left. To be worn nightly for wrist pain and numbness. Dx: left wrist pain CALCIUM CARBONATE/VITAMIN D3 (VITAMIN D-3 ORAL) Take by mouth. No current facility-administered medications for this visit. Medications and allergies reviewed by this provider. SOCIAL HISTORY Social History Marital status: Single Spouse name: Years of education: Number of children: 0 Occupational History Occupation Employer Comment [employer]* STUDENT Social History Main Topics Smoking status: Former Smoker Packs/day: 0.50 Years: 0.00 Types: Cigarettes Quit date: 03/05/2017 Smokeless tobacco: Never Used Comment: *Currently using E-Cig Alcohol use: No Drug use: No Sexual activity: Yes Partners with: Male REVIEW OF SYSTEMS All other reviewed and negative other than HPI. OBJECTIVE: BP 100/50 (BP Site: Left Arm, BP Position: Sitting, BP Cuff Size: Regular Adult) Pulse 60 Resp 16 Wt 59 kg (130 lb 1.3 oz) BMI 20.37 kg/m? . Vital signs reviewed by this provider. APPEARANCE Well appearing, alert, in no acute distress, well-hydrated, well nourished. HEART RRR with normal S1 and S2, no murmurs, no gallops, no JVD appreciated LUNG clear to auscultation ABDOMEN bowel sounds normoactive, no bruits, soft, non-tender, non-distended Right knee : without pain, swelling, redness, painful movement, loss of ROM, stiffness and effusion. of the tibial tubercle, patellar tendon, patella, medial joint line and lateral joint line . Patellofemoral Compression Test negative Sahra negative Elise negative Anterior Drawer negative Posterior Drawer negative ASSESSMENT/PLAN: 1. Acute pain of right knee - ICD9: 719.46, ICD10: M25.561 (primary diagnosis) - possible tendonitis - no red flag exam findings - red flag symptoms discussed, verbalizes understanding - offered physical therapy, clines would like to continue to use brace, ice , and NSAIDS - follow-up if persists or worsens 2. Need for vaccination - ICD9: V05.9, ICD10: Z23 - TETANUS/DIPTHERIA BOOSTER (OVER 7), PF IM 3. Right lower quadrant abdominal pain - ICD9: 789.03, ICD10: R10.31 Differential Diagnosis includes IBS, Constipation, IBD and Ovarian cyst - negative UA and test in office today - Work up with Ultrasound transvaginal - Treatment for constipation discussed - US FEMALE PELVIS TRANSVAG - follow-up pending testing Yoana Hodges APRN.CNP Prescription instructions reviewed with patient as applicable. Patient advised if symptoms do not improve or if symptoms worsen sooner, to contact their primary care physician. Potential red flag symptoms discussed with the patient. Reviewed appropriate action plan to take if red flag symptoms occur. Patient agreeable to treatment plan. ERICOV Observed: 01/24/2018 Status: COMPLETED Source: [place] 11:00 AM [facility] REPOSITORY [facility] TINY GARCIA ([id number]) 1995 F Date Time Provider Department 01/24/18 11:00 AM [facility] During your visit today, we recorded the following information about you: Pulse Respiration Blood pressure Weight 60/minute 16/minute 100/50 59 kg Yoana Hodges APRN.CNP 01/24/2018 2:41 PM Signed 01/24/2018 Patient presents with: Pain: rt knee pain for about a month ,history of old injury SUBJECTIVE: This is a 22 year old that is here today for Above Complaints. Also has concern for abdominal pain. Knee pain: ONSET: has had on/off for years- worse last 6 month LOCATION: right front knee- pain at worst 9/10 right know 2/10 DURATION: continious CHARACTERISTICS: tight feeling, feeling like it is going to give out AGGRAVATING FEATURES:walking ALLEVIATING FEATURES: ice, wearing a brace RADIATION: none TIMING:no specific Denies fever, chills, knee surgeries, joint redness, warmth, or swelling. Positive for falling on knee in highschool and went to therapy for it. Has had right lower quadrant pain for about 6 months. Pain described as a quick sharp intermittent pain. No aggravating features. Has not used anything for pain relief as she reports it comes and goes quickly. Reports is 2-3 days late for period- chance of . Denies weight loss, fevers, chills, SOB, dyspnea, chest pain, nausea, vomiting, diarrhea, hematochezia, melena, vaginal discharge, dysuria, and hematuria. Positive for constipation during period, otherwise normal BM daily. Component Latest Ref Rng AND Units 01/24/2018 GLUCOSE UA (POCT) Negative mg/dL Negative BILIRUBIN UA (POCT) Negative Negative KETONE UA (POCT) Negative mg/dL Negative SPECIFIC GRAVITY UA (POCT) 1.005 - 1.030 1.025 HEMOGLOBIN/BLOOD UA (POCT) Negative Trace-intact (A) PH UA (POCT) 4.5 - 8.0 6.0 PROTEIN UA (POCT) Negative mg/dL Negative UROBILINOGEN UA (POCT) Normal E.U./dL 0.2 NITRITE UA (POCT) Negative Negative LEUKOCYTES UA (POCT) Negative Negative COLOR UA (POCT) Yellow CLARITY UA (POCT) Clear PAST MEDICAL HISTORY Diagnosis Date - Acne - Menarche 2008 7th Grade - Migraines - PMH - PAST MEDICAL HISTORY OF 11/29/03, 07-27-2011 normal color vision - Tobacco use ALLERGIES Patient has no known allergies. MEDICATIONS Current Outpatient Prescriptions: COMPOUNDED PRESCRIPTION Cock up wrist splint, left. To be worn nightly for wrist pain and numbness. Dx: left wrist pain CALCIUM CARBONATE/VITAMIN D3 (VITAMIN D-3 ORAL) Take by mouth. No current facility-administered medications for this visit. Medications and allergies reviewed by this provider. SOCIAL HISTORY Social History Marital status: Single Spouse name: Years of education: Number of children: 0 Occupational History Occupation Employer Comment [employer]* STUDENT Social History Main Topics Smoking status: Former Smoker Packs/day: 0.50 Years: 0.00 Types: Cigarettes Quit date: 03/05/2017 Smokeless tobacco: Never Used Comment: *Currently using E-Cig Alcohol use: No Drug use: No Sexual activity: Yes Partners with: Male REVIEW OF SYSTEMS All other reviewed and negative other than HPI. OBJECTIVE: BP 100/50 (BP Site: Left Arm, BP Position: Sitting, BP Cuff Size: Regular Adult) Pulse 60 Resp 16 Wt 59 kg (130 lb 1.3 oz) BMI 20.37 kg/m? . Vital signs reviewed by this provider. APPEARANCE Well appearing, alert, in no acute distress, well- hydrated, well nourished. HEART RRR with normal S1 and S2, no murmurs, no gallops, no JVD appreciated LUNG clear to auscultation ABDOMEN bowel sounds normoactive, no bruits, soft, non-tender, non-distended Right knee : without pain, swelling, redness, painful movement, loss of ROM, stiffness and effusion. of the tibial tubercle, patellar tendon, patella, medial joint line and lateral joint line . Patellofemoral Compression Test negative Sahra negative Elise negative Anterior Drawer negative Posterior Drawer negative ASSESSMENT/PLAN: 1. Acute pain of right knee - ICD9: 719.46, ICD10: M25.561 (primary diagnosis) - possible tendonitis - no red flag exam findings - red flag symptoms discussed, verbalizes understanding - offered physical therapy, clines would like to continue to use brace, ice , and NSAIDS - follow-up if persists or worsens 2. Need for vaccination - ICD9: V05.9, ICD10: Z23 - TETANUS/DIPTHERIA BOOSTER (OVER 7), PF IM 3. Right lower quadrant abdominal pain - ICD9: 789.03, ICD10: R10.31 Differential Diagnosis includes IBS, Constipation, IBD and Ovarian cyst - negative UA and test in office today - Work up with Ultrasound transvaginal - Treatment for constipation discussed - US FEMALE PELVIS TRANSVAG - follow-up pending testing Yoana Goodsonlognegro, AC.HEADWAITER/HEADWAITRESS Prescription instructions reviewed with patient as applicable. Patient advised if symptoms do not improve or if symptoms worsen sooner, to contact their primary care physician. Potential red flag symptoms discussed with the patient. Reviewed appropriate action plan to take if red flag symptoms occur. Patient agreeable to treatment plan. Referring Provider: AMA MOSS) [[id number]] Allergies As of Date: 01/24/2018 (No Known Allergies) Date Reviewed: 01/24/2018 Reviewed by: Kinsey Chandler (Kyung) KYUNG Calderon - Fully Assessed Reason for Visit: Pain [78] Cmt: rt knee pain for about a month ,history of old injury Primary Visit Diagnosis:Acute pain of right knee [M25.561] Other Visit Diagnoses:Need for vaccination [Z23] Right lower quadrant abdominal pain [R10.31] Missed period [N92.6] Order(s):TETANUS/DIPTHERIA BOOSTER (OVER 7), PF IM [[id number]] Order #: [id number] UA DIP B/O [[id number]] Order #: [id number] HCG QUAL UR [SQUHCG] Order #: [id number] FUTURE US FEMALE PELVIS TRANSVAG [[id number]] Order #: [id number] FUTURE UA DIP, URINE (POC) [[id number]] Order #: [id number]. #:[id number] Prescriptions as of 01/24/2018 Sig: COMPOUNDED PRESCRIPTION Cock up wrist splint, left. T* VITAMIN D-3 ORAL Take by mouth. Medication notes this encounter COMPOUNDED PRESCRIPTION >> Kinsey Calderon LPN, KYUNG 01/24/2018 10:49 AM >> KINSEY CALDERON LPN WedJan 24, 2018 10:49 AM Nol onger using Problem List As Of Date 01/24/2018 Noted Resolved Acne Vulgaris: Inflammatory/Comedonal Grade III*INVALID FOR*07/25/2012 Striae Distensae: lower mid to lower back [L90.*INVALID FOR* Capsulitis [M77.9] INVALID FOR*07/25/2012 Headache [R51] INVALID FOR* Patellar tendinitis [M76.50] INVALID FOR*07/03/2011 Knee pain [M25.569] INVALID FOR*07/03/2011 Arcuate uterus [Q51.810] INVALID FOR* Dysmenorrhea [N94.6] INVALID FOR* Right shoulder pain [M25.511] INVALID FOR* Follow-up and Disposition History Recorded Encounter Status:Closed by YOANA HODGES CNP on 01/24/18 KIMN Observed: 01/20/2018 Status: COMPLETED Source: [place] 12:00 AM [facility] REPOSITORY Telephone (FAMPWS) TINY GARCIA ([id number]) 1995 F Date Time Provider Department 01/20/18 AMA MOSS) RAMIREZ During your visit today, we recorded the following information about you: Christian Waddell Ma 01/20/2018 11:07 AM Signed Type of form: FMLA Form received via walk in When form is completed, Mail form to [employer] - Self Addressed Envelope included. Form has been forwarded to Nurse Practictioner: Yoana Hodges CNP - Patient scheduled 01/24 Christian Calderon LPN, INDUSTRIAL CHEMISTRY TEACHER 01/25/2018 9:37 AM Signed Form was completed mailed in envelope as requested. Form was copied and sent for scanning. Christian Waddell Ma 02/02/2018 3:02 PM Signed Forms refaxed to [employer] Allergies As of Date: 01/20/2018 (No Known Allergies) Date Reviewed: 08/13/2017 Reviewed by: Christian Waddell Ma - Fully Assessed Reason for Visit: Forms [913] Prescriptions as of 01/20/2018 Sig: VITAMIN D-3 ORAL Take by mouth. COMPOUNDED PRESCRIPTION Cock up wrist splint, left. T* Problem List As Of Date 01/20/2018 Noted Resolved Acne Vulgaris: Inflammatory/Comedonal Grade III*INVALID FOR*07/25/2012 Striae Distensae: lower mid to lower back [L90.*INVALID FOR* Capsulitis [M77.9] INVALID FOR*07/25/2012 Headache [R51] INVALID FOR* Patellar tendinitis [M76.50] INVALID FOR*07/03/2011 Knee pain [M25.569] INVALID FOR*07/03/2011 Arcuate uterus [Q51.810] INVALID FOR* Dysmenorrhea [N94.6] INVALID FOR* Right shoulder pain [M25.511] INVALID FOR* Encounter Status:Closed by YUMIKO KINSEYCarlito Chandler LPN on 01/25/18 XR WRIST 3V PA/LAT/OBL Observed: 08/13/2017 Status: F Source: [facility] 5:32 PM [facility] RE[facility] * * *Final Report* * * DATE OF EXAM: Aug 13 2017 5:32PM WOX [id number] - XR WRIST 3V PA/LAT/OBL LT / PROCEDURE REASON: Pain in left wrist * * * * Physician Interpretation * * * * PROCEDURE: Left wrist INDICATION: Pain in left wrist . TECHNIQUE: XR WRIST 3V PA/LAT/OBL LT COMPARISON: None FINDINGS: No fractures or dislocations are seen. The bones, joint spaces and soft tissues are unremarkable. IMPRESSION: Negative Rotating Equipment Specialist: PSCB Transcribe Date/Time: Aug 13 2017 6:02P Dictated by : WOOD MIRANDA MD This examination was interpreted and the report reviewed and electronically signed by: WOOD MIRANDA MD on Aug 13 2017 6:03PM EST [id number] PROGRESS Observed: 08/13/2017 Status: COMPLETED Source: [place] 5:24 PM [facility] REPOSITORY HNO ID: [id number] Author: Feli Dai (Rt) Service: (none) Author Type: Inspector Final Assembly Electrical Type: Progress Notes Filed: 08/13/2017 5:31 PM Note Text: Radiology Service Progress Note PATIENT NAME: Tiny Garcia DATE OF SERVICE: August 13, 2017 TIME: 5:24 PM PATIENT IDENTITY VERIFICATION COMPLETED USING TWO (2) METHODS: Patient confirmed name verbally and Date of . PATIENT GENDER DATA: Female. status: : No status: NO. PATIENT RELEVANT IMPLANT DATA REVIEWED: Not Applicable RADIOLOGY DEPARTMENT: General X-ray: Exam(s) Completed: Upper Extremity X-Ray(s): Wrist, left : PERIPHERAL IV DATA: Not applicable SIGNED BY: RT Malaika August 13, 2017 5:24 PM PROGRESS Observed: 08/13/2017 Status: COMPLETED Source: [place] 4:49 PM [facility] REPOSITORY HNO ID: [id number] Author: Ama Moss Service: (none) Author Type: Physician Type: Progress Notes Filed: 08/14/2017 8:03 AM Note Text: Chief Complaint Patient presents with: Recheck: wrist pain - c/o foot pain bottom of left foot white and wrinkly HPI Tiny Garcia is a 22 year old female who presents here today for Above Complaints.. Patient complains of left wrist pain for the last 4 weeks. Pain located over medial aspect of wrist with radiation into elbow. Described as constant burning pain with numbness. Numbness can travel up to shoulder and is also located over 1st-3rd finger on left hand when sleeping and 4th and 5th digit while working. Exacerbated with flexion/extension of the wrist. Treating with ibuprofen, aleve, muscle rub, and soft splint which have not helped with symptoms. Denies obvious injury to the area, erythema, swelling, fever, bruising, numbness/tingling in other extremities, Lhermitte's sign. 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 Was seen on 07/30 for same pain in UC and given prednisone for 5 days which did not improve symptoms. Past medical history, appointments, medications, allergies reviewed. Previous Medical History PAST MEDICAL HISTORY Diagnosis Date - Acne - Menarche 2007 7th Grade - Migraines - PMH - PAST MEDICAL HISTORY OF 11/29/03, 07-27-2011 normal color vision - Tobacco use Previous Surgical History PAST SURGICAL HISTORY Procedure Laterality Date - NONE Family History FAMILY HISTORY Problem Relation Age of Onset - None Mother - None Father - Breast Cancer Maternal Grandmother Patient Allergies ALLERGIES No Known Allergies Current Medications Current Outpatient Prescriptions on File Prior to Visit: CALCIUM CARBONATE/VITAMIN D3 (VITAMIN D-3 ORAL) Take by mouth. No current facility-administered medications on file prior to visit. Social History Social History Marital status: Single Spouse name: Years of education: Number of children: 0 Occupational History Occupation Employer Comment [employer]* STUDENT Social History Main Topics Smoking status: Former Smoker Packs/day: 0.50 Years: 0.00 Types: Cigarettes Quit date: 03/05/2017 Smokeless tobacco: Never Used Comment: *Currently using E-Cig Alcohol use: No Drug use: No Sexual activity: Yes Partners with: Male Review of Symptoms REVIEW OF SYSTEMS See HPI EXAM: BP 124/76 Pulse 82 Resp 16 Wt 59.4 kg (131 lb) LMP 07/25/2017 BMI 20.52 kg/m? General Appearance: Well appearing, alert, in no acute distress, well-hydrated, well nourished.. Skin: Skin color, texture, turgor normal, no suspicious rashes or lesions. Musculoskeletal: No joint swelling, bruising, or erythema. TTP over medial aspect of wrist. Pain with full flexion and extension. Normal ROM. Normal sensation to light touch. Decreased certified pharmacist assistant strength on left 4/5 compared to right. Negative tinels and phalens. Negative for shooting sensation with percussion over cubital tunnel. Health Maintenance List ONE PNEUMOVAX PRIOR TO AGE 65 due on 05/04/2014 DTAP,TDAP,TD(7 - Td) due on 09/23/2016 GC (GONORRHEA) SCREENING (18-24) due on 05/03/2018 CHLAMYDIA SCREENING (18-24) due on 05/03/2018 PAP EVERY 3 YEARS (21-30 YEAR OLDS) due on 08/03/2020 HPV VACCINE Completed INFLUENZA Completed ASSESSMENT/PLAN: 1. Left wrist pain - ICD9: 719.43, ICD10: M25.532 (primary diagnosis) Unknown etiology. Possibly related to carpal tunnel vs cubital tunnel syndrome. Will obtain EMG and xray, give cock up wrist splint, and advised ice, stretches, and NSAIDs as prescribed. Will pursue further workup based on results. May need referral to ortho hand. - EMG(NEURO/NI) 2. Numbness and tingling in left hand - ICD9: 782.0, ICD10: R20.0, R20.2 See above. - EMG(NEURO/NI) 3. Unprotected sexual intercourse - ICD9: V69.2, ICD10: Z72.51 Negative urine testing. - HCG QUAL UR B/O Ama Moss MD CNOV Observed: 08/13/2017 Status: COMPLETED Source: [place] 4:40 PM [facility] REPOSITORY Office Visit (FAMPWS) TINY GARCIA ([id number]) 1995 F Date Time Provider Department 08/13/17 4:40 PM AMA MOSS) HERBERTHWS During your visit today, we recorded the following information about you: Pulse Respiration Blood pressure Weight 82/minute 16/minute 124/76 59.4 kg Ama Moss MD 08/14/2017 8:03 AM Signed Chief Complaint Patient presents with: Recheck: wrist pain - c/o foot pain bottom of left foot white and wrinkly HPI Tiny Garcia is a 22 year old female who presents here today for Above Complaints.. Patient complains of left wrist pain for the last 4 weeks. Pain located over medial aspect of wrist with radiation into elbow. Described as constant burning pain with numbness. Numbness can travel up to shoulder and is also located over 1st-3rd finger on left hand when sleeping and 4th and 5th digit while working. Exacerbated with flexion/extension of the wrist. Treating with ibuprofen, aleve, muscle rub, and soft splint which have not helped with symptoms. Denies obvious injury to the area, erythema, swelling, fever, bruising, numbness/tingling in other extremities, Lhermitte's sign. 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 Was seen on 07/30 for same pain in UC and given prednisone for 5 days which did not improve symptoms. Past medical history, appointments, medications, allergies reviewed. Previous Medical History PAST MEDICAL HISTORY Diagnosis Date - Acne - Menarche 2007 7th Grade - Migraines - PMH - PAST MEDICAL HISTORY OF 11/29/03, 07-27-2011 normal color vision - Tobacco use Previous Surgical History PAST SURGICAL HISTORY Procedure Laterality Date - NONE Family History FAMILY HISTORY Problem Relation Age of Onset - None Mother - None Father - Breast Cancer Maternal Grandmother Patient Allergies ALLERGIES No Known Allergies Current Medications Current Outpatient Prescriptions on File Prior to Visit: CALCIUM CARBONATE/VITAMIN D3 (VITAMIN D-3 ORAL) Take by mouth. No current facility-administered medications on file prior to visit. Social History Social History Marital status: Single Spouse name: Years of education: Number of children: 0 Occupational History Occupation Employer Comment [employer]* STUDENT Social History Main Topics Smoking status: Former Smoker Packs/day: 0.50 Years: 0.00 Types: Cigarettes Quit date: 03/05/2017 Smokeless tobacco: Never Used Comment: *Currently using E-Cig Alcohol use: No Drug use: No Sexual activity: Yes Partners with: Male Review of Symptoms REVIEW OF SYSTEMS See HPI EXAM: BP 124/76 Pulse 82 Resp 16 Wt 59.4 kg (131 lb) LMP 07/25/2017 BMI 20.52 kg/m? General Appearance: Well appearing, alert, in no acute distress, well-hydrated, well nourished.. Skin: Skin color, texture, turgor normal, no suspicious rashes or lesions. Musculoskeletal: No joint swelling, bruising, or erythema. TTP over medial aspect of wrist. Pain with full flexion and extension. Normal ROM. Normal sensation to light touch. Decreased certified pharmacist assistant strength on left 4/5 compared to right. Negative tinels and phalens. Negative for shooting sensation with percussion over cubital tunnel. Health Maintenance List ONE PNEUMOVAX PRIOR TO AGE 65 due on 05/04/2014 DTAP,TDAP,TD(7 - Td) due on 09/23/2016 GC (GONORRHEA) SCREENING (18-24) due on 05/03/2018 CHLAMYDIA SCREENING (18-24) due on 05/03/2018 PAP EVERY 3 YEARS (21-30 YEAR OLDS) due on 08/03/2020 HPV VACCINE Completed INFLUENZA Completed ASSESSMENT/PLAN: 1. Left wrist pain - ICD9: 719.43, ICD10: M25.532 (primary diagnosis) Unknown etiology. Possibly related to carpal tunnel vs cubital tunnel syndrome. Will obtain EMG and xray, give cock up wrist splint, and advised ice, stretches, and NSAIDs as prescribed. Will pursue further workup based on results. May need referral to ortho hand. - EMG(NEURO/NI) 2. Numbness and tingling in left hand - ICD9: 782.0, ICD10: R20.0, R20.2 See above. - EMG(NEURO/NI) 3. Unprotected sexual intercourse - ICD9: V69.2, ICD10: Z72.51 Negative urine testing. - HCG QUAL UR B/O Ama Moss MD Referring Provider: SELF [[id number]] Allergies As of Date: 08/13/2017 (No Known Allergies) Date Reviewed: 08/13/2017 Reviewed by: Christian Waddell Ma - Fully Assessed Reason for Visit: Recheck [92] Cmt: wrist pain - c/o foot pain bottom of left foot white and wrinkly Reason For Visit History Recorded Primary Visit Diagnosis:Left wrist pain [M25.532] Other Visit Diagnoses:Numbness and tingling in left hand [R20.0, R20.2] Unprotected sexual intercourse [Z72.51] Order(s):EMG(NEURO/NI) [[id number]] Order #: [id number]: 1 FUTURE COMPOUNDED PRESCRIPTIONCock up wrist splint, left. To be worn nightly for wrist pain and numbness. Dx: left wrist painDisp: 1 DeviceRfl: 0 naproxen (NAPROSYN) 500 mg tabletTake 1 tablet by mouth twice daily as needed. Take with food.Disp: 60 tabletRfl: 1 HCG QUAL UR B/O [[id number]] Order #: [id number] XR WRIST GENERAL 3V PA/LAT/OBL LT [[id number]] Order #: [id number] FUTURE Prescriptions as of 08/13/2017 Sig: VITAMIN D-3 ORAL Take by mouth. COMPOUNDED PRESCRIPTION Cock up wrist splint, left. T* NAPROXEN 500 MG TABLET Take 1 tablet by mouth twice * Problem List As Of Date 08/13/2017 Noted Resolved Acne Vulgaris: Inflammatory/Comedonal Grade III*INVALID FOR*07/25/2012 Striae Distensae: lower mid to lower back [L90.*INVALID FOR* Capsulitis [M77.9] INVALID FOR*07/25/2012 Headache [R51] INVALID FOR* Patellar tendinitis [M76.50] INVALID FOR*07/03/2011 Knee pain [M25.569] INVALID FOR*07/03/2011 Arcuate uterus [Q51.810] INVALID FOR* Dysmenorrhea [N94.6] INVALID FOR* Right shoulder pain [M25.511] INVALID FOR* Prescriptions ordered this encounter Disp Refills Start End COMPOUNDED PRESCRIPTION 1 De* 0 08/13/2017 Class: Print RX Sig: Cock up wrist splint, left. To be worn nightly for wrist pain and numbness. Dx: left wrist pain NAPROXEN 500 MG TABLET 60 t* 1 08/13/2017 09/12/2017 Route: ORAL Sig: Take 1 tablet by mouth twice daily as needed. Take with food. Encounter Status:Closed by AMA MOSS MD on 08/14/17 PROGRESS Observed: 08/09/2017 Status: COMPLETED Source: [place] 10:08 AM [facility] REPOSITORY HNO ID: [id number] Author: Sinai Swift Psr Service: (none) Author Type: (none) Type: Progress Notes Filed: 08/09/2017 10:08 AM Note Text: pap logged, letter sent. Sinai Swift Psr Observed: 08/03/2017 Status: F Source: [place] TRICHOMONAS PREP 10:03 AM [facility] REPOSITORY Sp. Request/Comment: - Swab Smear Result - Negative for Trichomonas vaginalis antigen This test was developed and its performance characteristics determined by [facility] [place] ([facility]). It has not been cleared or approved by the FDA. [facility] is regulated under CLIA as qualified to perform high-complexity testing. This test is used for clinical purposes. It should not be regarded as investigational or for research. Performed By: #### TRICHO #### [facility] [address] [place] [id number] CNOV Observed: 08/03/2017 Status: COMPLETED Source: [place] 9:30 AM [facility] REPOSITORY Office Visit (WOOB) TINY GARCIA ([id number]) 1995 F Date Time Provider Department 08/03/17 9:30 AM VANNESSA MEDELLIN (KIM) WOOB During your visit today, we recorded the following information about you: Blood pressure Weight Height Last Period 100/62 58.1 kg 1.702 m 07/25/17 Vannessa Medellin APRN.HEADWAITER/HEADWAITRESS 08/03/2017 9:48 AM Signed Tiny Sharma Jose is a 22 year old who presents for her annual gynecologic exam with complaints, heavy bleeding. Works at [employer] Menses: cycles every 28 days and 5-6 days of flow. Contraception: none- desires HPV vaccine: Yes Last Pap: never Last mammogram: never Sexually active: Yes Patient concerns for STD exposure: No. Obstetric History T0 L0 SAB0 TAB0 Ectopic0 Multiple0 Live Births0 PAST MEDICAL HISTORY Diagnosis Date - Acne - Menarche 2007 7th Grade - Migraines - PMH - PAST MEDICAL HISTORY OF 11/29/03, 07-26-2011 normal color vision - Tobacco use PAST SURGICAL HISTORY Procedure Laterality Date - NONE FAMILY HISTORY Problem Relation Age of Onset - None Mother - None Father - Breast Cancer Maternal Grandmother SOCIAL HISTORY Social History Substance Use Topics - Smoking status: Former Smoker Packs/day: 0.50 Types: Cigarettes Quit date: 03/05/2017 - Smokeless tobacco: Never Used Comment: *Currently using E-Cig - Alcohol use No REVIEW OF SYSTEMS Abdomen: No abdominal pain, nausea, vomiting, diarrhea, or constipation. No bloating, early satiety, indigestion, or increased flatulence. Bladder: No dysuria, gross hematuria, urinary frequency, urinary urgency, or incontinence and cloudy urine with pain sometimes. Breast: No breast lumps, nipple d/c, overlying skin changes, redness or skin retraction. Allergies and current medication updated:Yes EXAM: BP 100/62 Ht 5' 7 (1.70m) Wt 128 lb (58.1kg) LMP 07/25/2017 BMI 20.04 kg/(m2). GENERAL: pleasant, female in no apparent distress HEENT: Normocephalic, atraumatic, mucus membranes moist and no lesions NECK: Supple, full range of motion, no adenopathy and thyroid normal DERMATOLOGY: Normal, without lesions, non-icteric and non-hirsute BREAST: soft, non-tender, symmetric, no dominant mass, normal nipple-areolar complex, no lymphadenopathy and no nipple discharge CHEST: Normal inspiratory effort ABDOMEN: soft, non-tender and no masses PELVIC: external genitalia normal, normal Bartholin's glands, urethra, [place]'s glands, no vulvar lesions, no cervical lesions, good vaginal support, physiologic discharge present, normal appearing perineal body and perianal region, well estrogenized BIMANUAL: uterus normal size, shape and consistency, no adnexal masses, non-tender and no cervical motion tenderness RECTOVAGINAL: deferred. NEURO: alert and oriented x3,exam grossly non-focal EXTREMITIES: normal ASSESSMENT/PLAN: 1) Health maintenance: Pap done with reflex HPV. Mammogram starting age 40. Nutrition, exercise and routine health maintenance exams reviewed. Calcium/Vitamin D supplementation information provided. HPV vaccine: completed series 2) Contraception: none. Contraceptive options reviewed and information provided. 3) STD screening: Declined STD check. 4) Follow up one year or sooner as needed 5) Request Trich screening Vannessa Medellin APRN.KIM Swift Psr 08/09/2017 10:08 AM Signed pap logged, letter sent. Sinai Swift Psr Referring Provider: SELF [[id number]] Allergies As of Date: 08/03/2017 (No Known Allergies) Date Reviewed: 08/03/2017 Reviewed by: Vannessa Sanchez) Lacie - Fully Assessed Reason for Visit: Well Woman [1463] Primary Visit Diagnosis:Encounter for gynecological examination (general) (routine) without abnormal findings [Z01.419] Other Visit Diagnoses:Screening for cervical cancer [Z12.4] Encounter for screening for human papillomavirus (HPV) [Z11.51] Screening for STD (sexually transmitted disease) [Z11.3] Order(s):PAP FLUID CERVICAL SCREENING [[id number]] Order #: [id number]. #:[id number] TRICHOMONAS PREP [SQTRICHO] Order #: [id number]. #:[id number] Prescriptions as of 08/03/2017 Sig: PREDNISONE 20 MG TABLET Take 2 tablets by mouth once * VITAMIN D-3 ORAL Take by mouth. Problem List As Of Date 08/03/2017 Noted Resolved Acne Vulgaris: Inflammatory/Comedonal Grade III*INVALID FOR*07/25/2012 Striae Distensae: lower mid to lower back [L90.*INVALID FOR* Capsulitis [M77.9] INVALID FOR*07/25/2012 Headache [R51] INVALID FOR* Patellar tendinitis [M76.50] INVALID FOR*07/03/2011 Knee pain [M25.569] INVALID FOR*07/03/2011 Arcuate uterus [Q51.810] INVALID FOR* Dysmenorrhea [N94.6] INVALID FOR* Right shoulder pain [M25.511] INVALID FOR* Medications Discontinued During This Encounter amitriptyline (ELAVIL) 10 mg tablet 30 t* 3 12/21/2016 08/03/2017 Route: ORAL Sig: Take 1 tablet by mouth daily at bedtime. Patient not taking: Reported on 07/30/2017 Disc: Reason for discontinue is not on file. citalopram (CELEXA) 20 mg tablet 30 t* 1 10/09/2016 08/03/2017 Route: ORAL Sig: Take 1 tablet by mouth once daily. Take 10mg (1/2 tablet for 1 week) and then increase to 20mg (whole tablet) Patient not taking: Reported on 07/30/2017 Disc: Reason for discontinue is not on file. nicotine (NICODERM) 14 mg/24 hr 30 P* 0 12/03/2016 08/03/2017 Route: TRANSDERMAL Sig: Apply 1 Patch as directed every 24 hours. No smoking with patch. Patient not taking: Reported on 07/30/2017 Disc: Reason for discontinue is not on file. nicotine (NICODERM) 7 mg/24 hr 30 P* 0 12/03/2016 08/03/2017 Route: TRANSDERMAL Sig: Apply 1 Patch as directed every 24 hours. Patient not taking: Reported on 07/30/2017 Disc: Reason for discontinue is not on file. norgestimate 0.25 mg-ethinyl estradi* 1 Pa* 2 08/13/2015 08/03/2017 Sig: Take one active pill daily, skip placebos Patient not taking: Reported on 07/30/2017 Disc: Reason for discontinue is not on file. SUMAtriptan (IMITREX) 50 mg tablet 12 t* 0 12/21/2016 08/03/2017 Sig: Take 50 mg tablet at onset of migraine. If symptoms not resolved, may repeat dose 2 hours later. Max dose in 24 hours: 2 tablets. Patient not taking: Reported on 07/30/2017 Disc: Reason for discontinue is not on file. Disposition: Return in 1 year (on 08/03/2018) for Annual Exam. Follow-up and Disposition History Recorded Letter Text Vannessa Medellin CNP [facility] [address], [place] [id number] Tiny Garcia [address] [facility] [address] 08/09/2017 [facility]: [id number] Dear Tiny, We are pleased to inform you that your recent Pap Test was within normal limits. Because Pap tests are so effective in the early detection of cervical cancer, you are encouraged to continue having the test at regular intervals. You will be due for a 1 year Gynecological Exam after this date 08/03/2018. If you have any questions regarding the above information, do not hesitate to call our office at between the hours of 8:00 a.m. and 5:00 p.m. Sincerely, Vannessa Medellin CNP Encounter Status:Closed by VANNESSA MEDELLIN on 08/03/17 CYTOLOGY Observed: 08/03/2017 Status: F Source: GERMFASK 9:22 AM [facility] REPOSITORY Specimen originated from [facility] Specimen #: [id number] Submitting Physician: VANNESSA MEDELLIN SPECIMEN SUBMITTED A: CERVICAL, SCREENING, FLUID FINAL DIAGNOSIS A. CERVICAL, SCREENING, FLUID Satisfactory for interpretation. Negative for intraepithelial lesion or malignancy. This specimen has been analyzed by the ThinPrep Imaging System, an automated imaging and review system, which assists the laboratory in evaluating cells on ThinPrep Pap tests. Following automated imaging, selected coates from every slide are reviewed by a heel sander rubber. LEON Cedillo(ASCP) (Electronic Signature) CLINICAL DATA ROUTINE EXAM, HPV Testing: Yes, Reflex HPV for ASCUS Date of Last Menstrual Period: 07/25/2017 STAINS A: CERVICAL, SCREENING, FLUID THIN PREP [employer] Ling Garcia M.D., Regular Senior Care Provider Date of Report: 08/06/2017 Date of Procedure: 08/03/2017 Date of Receipt: 08/04/2017 Submitted by: VANNESSA MEDELLIN Location: [facility] Diagnostic interpretation performed at [facility], [address] [place] [address], [place] [address]. The Pap Smear is a screening test for cervical cancer. False negative results occur with all screening tests, emphasizing the need for rescreening at recommended intervals, and clinical correlation. PROGRESS Observed: 08/03/2017 Status: COMPLETED Source: [facility]ERMFASK 9:20 AM [facility] REPOSITORY HNO ID: [id number] Author: Vannessa Medellin Service: (none) Author Type: Nurse Practitioner Type: Progress Notes Filed: 08/03/2017 9:48 AM Note Text: Tiny Garcia is a 22 year old who presents for her annual gynecologic exam with complaints, heavy bleeding. Works at [employer] Menses: cycles every 28 days and 5-6 days of flow. Contraception: none- desires HPV vaccine: Yes Last Pap: never Last mammogram: never Sexually active: Yes Patient concerns for STD exposure: No. Obstetric History T0 L0 SAB0 TAB0 Ectopic0 Multiple0 Live Births0 PAST MEDICAL HISTORY Diagnosis Date - Acne - Menarche 2008 7th Grade - Migraines - PMH - PAST MEDICAL HISTORY OF 11/29/03, 07-26-2011 normal color vision - Tobacco use PAST SURGICAL HISTORY Procedure Laterality Date - NONE FAMILY HISTORY Problem Relation Age of Onset - None Mother - None Father - Breast Cancer Maternal Grandmother SOCIAL HISTORY Social History Substance Use Topics - Smoking status: Former Smoker Packs/day: 0.50 Types: Cigarettes Quit date: 03/05/2017 - Smokeless tobacco: Never Used Comment: *Currently using E-Cig - Alcohol use No REVIEW OF SYSTEMS Abdomen: No abdominal pain, nausea, vomiting, diarrhea, or constipation. No bloating, early satiety, indigestion, or increased flatulence. Bladder: No dysuria, gross hematuria, urinary frequency, urinary urgency, or incontinence and cloudy urine with pain sometimes. Breast: No breast lumps, nipple d/c, overlying skin changes, redness or skin retraction. Allergies and current medication updated:Yes EXAM: BP 100/62 Ht 5' 7 (1.70m) Wt 128 lb (58.1kg) LMP 07/25/2017 BMI 20.04 kg/(m2). GENERAL: pleasant, female in no apparent distress HEENT: Normocephalic, atraumatic, mucus membranes moist and no lesions NECK: Supple, full range of motion, no adenopathy and thyroid normal DERMATOLOGY: Normal, without lesions, non-icteric and non-hirsute BREAST: soft, non-tender, symmetric, no dominant mass, normal nipple-areolar complex, no lymphadenopathy and no nipple discharge CHEST: Normal inspiratory effort ABDOMEN: soft, non-tender and no masses PELVIC: external genitalia normal, normal Bartholin's glands, urethra, [place]'s glands, no vulvar lesions, no cervical lesions, good vaginal support, physiologic discharge present, normal appearing perineal body and perianal region, well estrogenized BIMANUAL: uterus normal size, shape and consistency, no adnexal masses, non-tender and no cervical motion tenderness RECTOVAGINAL: deferred. NEURO: alert and oriented x3,exam grossly non-focal EXTREMITIES: normal ASSESSMENT/PLAN: 1) Health maintenance: Pap done with reflex HPV. Mammogram starting age 40. Nutrition, exercise and routine health maintenance exams reviewed. Calcium/Vitamin D supplementation information provided. HPV vaccine: completed series 2) Contraception: none. Contraceptive options reviewed and information provided. 3) STD screening: Declined STD check. 4) Follow up one year or sooner as needed 5) Request Trich screening Vannessa Medellin APRN.CNP PROGRESS Observed: 07/30/2017 Status: COMPLETED Source: [facility]ERMFASK 1:51 PM [facility] REPOSITORY HNO ID: [id number] Author: Sailaja Bray Service: (none) Author Type: Nurse Practitioner Type: Progress Notes Filed: 07/30/2017 2:04 PM Note Text: Subjective HPI Pt presents with c/o left wrist pain with radiculopathy to forearm and upper arm x 3 days. Has had intermittent left wrist pain x 2-3 months. 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 Denies recent/remote injury. Has been taking ibuprofen q6 hours x 3 days with no improvement of sx. Denies sensory changes, weakness. Full ROM. Review of Systems Constitutional: Negative for chills and fever. Musculoskeletal: Positive for joint pain. Objective Physical Exam Constitutional: She is oriented to person, place, and time and well-developed, well-nourished, and in no distress. No distress. Musculoskeletal: Left wrist: She exhibits normal range of motion, no tenderness, no bony tenderness, no swelling, no effusion, no crepitus, no deformity and no laceration. Full active ROM against resistance. Discomfort with pronation and supination. Cap refill 2 sec. Radial and brachial pulses 2+. Sensory intact. Neurological: She is alert and oriented to person, place, and time. Skin: Skin is warm and dry. She is not diaphoretic. BP 124/68 Pulse 76 Temp 36.7 ?C (98.1 ?F) (Tympanic) Resp 16 Wt 57.6 kg (127 lb) .Patient presents with: Wrist Pain: denies injury left wrist x 2-3 months, some right wrist pain also PAST MEDICAL HISTORY Diagnosis Date - Acne - Menarche 2007 7th Grade - Migraines - PMH - PAST MEDICAL HISTORY OF 11/29/03, 07-27-2011 normal color vision - Tobacco use PAST SURGICAL HISTORY Procedure Laterality Date - NONE ALLERGIES Patient has no known allergies. MEDICATIONS CALCIUM CARBONATE/VITAMIN D3 (VITAMIN D-3 ORAL) Take by mouth. predniSONE (DELTASONE) 20 mg tablet Take 2 tablets by mouth once daily for 5 days. Take daily with food. SUMAtriptan (IMITREX) 50 mg tablet Take 50 mg tablet at onset of migraine. If symptoms not resolved, may repeat dose 2 hours later. Max dose in 24 hours: 2 tablets. amitriptyline (ELAVIL) 10 mg tablet Take 1 tablet by mouth daily at bedtime. nicotine (NICODERM) 14 mg/24 hr Apply 1 Patch as directed every 24 hours. No smoking with patch. nicotine (NICODERM) 7 mg/24 hr Apply 1 Patch as directed every 24 hours. citalopram (CELEXA) 20 mg tablet Take 1 tablet by mouth once daily. Take 10mg (1/2 tablet for 1 week) and then increase to 20mg (whole tablet) norgestimate 0.25 mg-ethinyl estradiol 35 mcg (SPRINTEC) 0.25- 35 mg-mcg per tablet Take one active pill daily, skip placebos FAMILY HISTORY Problem Relation Age of Onset - Breast Cancer Maternal Grandmother - None Mother - None Father Social History Substance Use Topics - Smoking status: Current Every Day Smoker Packs/day: 0.50 Types: Cigarettes - Smokeless tobacco: Never Used Comment: *Currently using E-Cig - Alcohol use No ASSESSMENT/PLAN: 1. Wrist pain, acute, left - ICD9: 719.43, ICD10: M25.532 - PREDNISONE 20 MG TABLET Encouraged compression and application of heat after work. Instructed to f/u with PCP if sx persist. The patient is instructed to return or seek emergency treatment if symptoms become worse or with any acute change in condition. The patient verbalizes understanding and is in agreement with plan of care. Sailaja Bray CNP CNOV Observed: 07/30/2017 Status: COMPLETED Source: [facility] 1:30 PM [facility] REPOSITORY [facility] TINY GARCIA ([id number]) 1995 F Date Time Provider Department 07/30/17 1:30 PM SAILAJA BRAY [facility] During your visit today, we recorded the following information about you: Temperature Pulse Respiration Blood pressure 98.1 degrees 76/minute 16/minute 124/68 Weight 57.6 kg Sailaja Bray APRN.CNP 07/30/2017 2:04 PM Signed Subjective HPI Pt presents with c/o left wrist pain with radiculopathy to forearm and upper arm x 3 days. Has had intermittent left wrist pain x 2-3 months. 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 Denies recent/remote injury. Has been taking ibuprofen q6 hours x 3 days with no improvement of sx. Denies sensory changes, weakness. Full ROM. Review of Systems Constitutional: Negative for chills and fever. Musculoskeletal: Positive for joint pain. Objective Physical Exam Constitutional: She is oriented to person, place, and time and well-developed, well-nourished, and in no distress. No distress. Musculoskeletal: Left wrist: She exhibits normal range of motion, no tenderness, no bony tenderness, no swelling, no effusion, no crepitus, no deformity and no laceration. Full active ROM against resistance. Discomfort with pronation and supination. Cap refill 2 sec. Radial and brachial pulses 2+. Sensory intact. Neurological: She is alert and oriented to person, place, and time. Skin: Skin is warm and dry. She is not diaphoretic. BP 124/68 Pulse 76 Temp 36.7 ?C (98.1 ?F) (Tympanic) Resp 16 Wt 57.6 kg (127 lb) .Patient presents with: Wrist Pain: denies injury left wrist x 2-3 months, some right wrist pain also PAST MEDICAL HISTORY Diagnosis Date - Acne - Menarche 2007 7th Grade - Migraines - PMH - PAST MEDICAL HISTORY OF 11/29/03, 07-27-2011 normal color vision - Tobacco use PAST SURGICAL HISTORY Procedure Laterality Date - NONE ALLERGIES Patient has no known allergies. MEDICATIONS CALCIUM CARBONATE/VITAMIN D3 (VITAMIN D-3 ORAL) Take by mouth. predniSONE (DELTASONE) 20 mg tablet Take 2 tablets by mouth once daily for 5 days. Take daily with food. SUMAtriptan (IMITREX) 50 mg tablet Take 50 mg tablet at onset of migraine. If symptoms not resolved, may repeat dose 2 hours later. Max dose in 24 hours: 2 tablets. amitriptyline (ELAVIL) 10 mg tablet Take 1 tablet by mouth daily at bedtime. nicotine (NICODERM) 14 mg/24 hr Apply 1 Patch as directed every 24 hours. No smoking with patch. nicotine (NICODERM) 7 mg/24 hr Apply 1 Patch as directed every 24 hours. citalopram (CELEXA) 20 mg tablet Take 1 tablet by mouth once daily. Take 10mg (1/2 tablet for 1 week) and then increase to 20mg (whole tablet) norgestimate 0.25 mg-ethinyl estradiol 35 mcg (SPRINTEC) 0.25- 35 mg-mcg per tablet Take one active pill daily, skip placebos FAMILY HISTORY Problem Relation Age of Onset - Breast Cancer Maternal Grandmother - None Mother - None Father Social History Substance Use Topics - Smoking status: Current Every Day Smoker Packs/day: 0.50 Types: Cigarettes - Smokeless tobacco: Never Used Comment: *Currently using E-Cig - Alcohol use No ASSESSMENT/PLAN: 1. Wrist pain, acute, left - ICD9: 719.43, ICD10: M25.532 - PREDNISONE 20 MG TABLET Encouraged compression and application of heat after work. Instructed to f/u with PCP if sx persist. The patient is instructed to return or seek emergency treatment if symptoms become worse or with any acute change in condition. The patient verbalizes understanding and is in agreement with plan of care. Sailaja Bray CNP Referring Provider: SELF [[id number]] Allergies As of Date: 07/30/2017 (No Known Allergies) Date Reviewed: 07/30/2017 Reviewed by: Sarah Cosby Ma - Fully Assessed Reason for Visit: Wrist Pain [1580] Cmt: denies injury left wrist x 2-3 months, some right wrist pain also Primary Visit Diagnosis:Wrist pain, acute, left [M25.532] Order(s):predniSONE (DELTASONE) 20 mg tabletTake 2 tablets by mouth once daily for 5 days. Take daily with food.Disp: 10 tabletRfl: 0 Prescriptions as of 07/30/2017 Sig: VITAMIN D-3 ORAL Take by mouth. PREDNISONE 20 MG TABLET Take 2 tablets by mouth once * SUMATRIPTAN 50 MG TABLET Take 50 mg tablet at onset of* Patient not taking: Reported on 07/30/2017 AMITRIPTYLINE 10 MG TABLET Take 1 tablet by mouth daily * Patient not taking: Reported on 07/30/2017 NICOTINE 14 MG/24 HR DAILY TR* Apply 1 Patch as directed vincent* Patient not taking: Reported on 07/30/2017 NICOTINE 7 MG/24 HR DAILY TRA* Apply 1 Patch as directed vincent* Patient not taking: Reported on 07/30/2017 CITALOPRAM 20 MG TABLET Take 1 tablet by mouth once d* Patient not taking: Reported on 07/30/2017 NORGESTIMATE 0.25 MG-ETHINYL * Take one active pill daily, s* Patient not taking: Reported on 07/30/2017 Problem List As Of Date 07/30/2017 Noted Resolved Acne Vulgaris: Inflammatory/Comedonal Grade III*INVALID FOR*07/25/2012 Striae Distensae: lower mid to lower back [L90.*INVALID FOR* Capsulitis [M77.9] INVALID FOR*07/25/2012 Headache [R51] INVALID FOR* Patellar tendinitis [M76.50] INVALID FOR*07/03/2011 Knee pain [M25.569] INVALID FOR*07/03/2011 Arcuate uterus [Q51.810] INVALID FOR* Dysmenorrhea [N94.6] INVALID FOR* Right shoulder pain [M25.511] INVALID FOR* Prescriptions ordered this encounter Disp Refills Start End PREDNISONE 20 MG TABLET 10 t* 0 07/30/2017 08/04/2017 Route: ORAL Sig: Take 2 tablets by mouth once daily for 5 days. Take daily with food. Encounter Status:Closed by SAILAJA BRAY CNP on 07/30/17 PROGRESS Observed: 07/02/2017 Status: COMPLETED Source: [facility] 3:27 PM [facility] REPOSITORY HNO ID: [id number] Author: Marija Alves (Kim) Service: (none) Author Type: Nurse Practitioner Type: Progress Notes Filed: 07/02/2017 3:49 PM Note Text: This is a 22 year old female who presents today with: Patient presents with: Recheck: red bumps next to right eye X3 weeks- sometimes itchy and very dry HISTORY OF PRESENT ILLNESS: Tiny Garcia is a 22 year old female. Patient presents with: Recheck: red bumps next to right eye X3 weeks- sometimes itchy and very dry Pt presents today with a red shaheed by her right eye. Refers that it has been there for about 3 weeks. Doesn't hurt. Sometimes it will itch. Feels like it is getting worse. Feels like it started as one small bump, and now there are several small bumps present. No hx of anything like that before. No watery eyes. No new exposures. No problems with allergies. Vision is okay. PAST MEDICAL HISTORY: PAST MEDICAL HISTORY Diagnosis Date - Acne - Menarche 2007 7th Grade - Migraines - PMH - PAST MEDICAL HISTORY OF 11/29/03, 07-27-2011 normal color vision - Tobacco use PAST SURGICAL HISTORY Procedure Laterality Date - NONE ALLERGIES Patient has no known allergies. MEDICATIONS Current Outpatient Prescriptions: CALCIUM CARBONATE/VITAMIN D3 (VITAMIN D-3 ORAL) Take by mouth. SUMAtriptan (IMITREX) 50 mg tablet Take 50 mg tablet at onset of migraine. If symptoms not resolved, may repeat dose 2 hours later. Max dose in 24 hours: 2 tablets. amitriptyline (ELAVIL) 10 mg tablet Take 1 tablet by mouth daily at bedtime. nicotine (NICODERM) 14 mg/24 hr Apply 1 Patch as directed every 24 hours. No smoking with patch. nicotine (NICODERM) 7 mg/24 hr Apply 1 Patch as directed every 24 hours. citalopram (CELEXA) 20 mg tablet Take 1 tablet by mouth once daily. Take 10mg (1/2 tablet for 1 week) and then increase to 20mg (whole tablet) norgestimate 0.25 mg-ethinyl estradiol 35 mcg (SPRINTEC) 0.25- 35 mg-mcg per tablet Take one active pill daily, skip placebos No current facility-administered medications for this visit. FAMILY HISTORY Problem Relation Age of Onset - Breast Cancer Maternal Grandmother - None Mother - None Father Social History Marital status: Single Spouse name: Years of education: Number of children: 0 Occupational History Occupation Employer Comment [employer]* STUDENT Social History Main Topics Smoking status: Current Every Day Smoker Packs/day: 0.50 Years: 0.00 Types: Cigarettes Smokeless tobacco: Never Used Comment: *Currently using E-Cig Alcohol use: No Drug use: No Sexual activity: Yes Partners with: Male control/protection: Pill EXAM: BP 110/68 (BP Site: Right Arm, BP Position: Sitting, BP Cuff Size: Regular Adult) Pulse 70 Resp 12 Wt 57.2 kg (126 lb) PHYSICAL EXAM: General Appearance: Well appearing, alert, in no acute distress, well-hydrated, well nourished.. Skin: Skin color, texture, turgor normal, no suspicious rashes or lesions. Right eye with red area just lateral and inferior to the lower lid. Red and slightly papular in nature. Head: Normocephalic, no masses, lesions, tenderness or abnormalities. Eyes: Anicteric sclera. Extraocular movements are intact. PERRLA. Conjunctiva is not injected. Neurologic: Gait normal. ASSESSMENT/PLAN: 1. Dermatitis - ICD9: 692.9, ICD10: L30.9 - Topical steriod tx with OTC 1% Hydrocortisone cream Notify provider if not improving or worsening. Discussed treatment plan and patient voices understanding. Patient's questions answered appropriately. Medications and potential side effects were discussed and patient voices understanding. Return to the office as scheduled or as needed for worsening/no improvement. Marija Alves APRN.KIM CNOV Observed: 07/02/2017 Status: COMPLETED Source: GERMFASK 3:20 PM [facility] REPOSITORY Office Visit ([facility]) ROSIOHOLLITINY DOZIER ([id number]) 1995 F Date Time Provider Department 07/02/17 3:20 PM [facility] your visit today, we recorded the following information about you: Pulse Respiration Blood pressure Weight 70/minute 12/minute 110/68 57.2 kg Marija Alves (Kim) 07/02/2017 3:49 PM Signed This is a 22 year old female who presents today with: Patient presents with: Recheck: red bumps next to right eye X3 weeks- sometimes itchy and very dry HISTORY OF PRESENT ILLNESS: Tiny Schwarzmaricruz is a 22 year old female. Patient presents with: Recheck: red bumps next to right eye X3 weeks- sometimes itchy and very dry Pt presents today with a red shaheed by her right eye. Refers that it has been there for about 3 weeks. Doesn't hurt. Sometimes it will itch. Feels like it is getting worse. Feels like it started as one small bump, and now there are several small bumps present. No hx of anything like that before. No watery eyes. No new exposures. No problems with allergies. Vision is okay. PAST MEDICAL HISTORY: PAST MEDICAL HISTORY Diagnosis Date - Acne - Menarche 2007 7th Grade - Migraines - PMH - PAST MEDICAL HISTORY OF 11/29/03, 07-27-2011 normal color vision - Tobacco use PAST SURGICAL HISTORY Procedure Laterality Date - NONE ALLERGIES Patient has no known allergies. MEDICATIONS Current Outpatient Prescriptions: CALCIUM CARBONATE/VITAMIN D3 (VITAMIN D-3 ORAL) Take by mouth. SUMAtriptan (IMITREX) 50 mg tablet Take 50 mg tablet at onset of migraine. If symptoms not resolved, may repeat dose 2 hours later. Max dose in 24 hours: 2 tablets. amitriptyline (ELAVIL) 10 mg tablet Take 1 tablet by mouth daily at bedtime. nicotine (NICODERM) 14 mg/24 hr Apply 1 Patch as directed every 24 hours. No smoking with patch. nicotine (NICODERM) 7 mg/24 hr Apply 1 Patch as directed every 24 hours. citalopram (CELEXA) 20 mg tablet Take 1 tablet by mouth once daily. Take 10mg (1/2 tablet for 1 week) and then increase to 20mg (whole tablet) norgestimate 0.25 mg-ethinyl estradiol 35 mcg (SPRINTEC) 0.25- 35 mg-mcg per tablet Take one active pill daily, skip placebos No current facility-administered medications for this visit. FAMILY HISTORY Problem Relation Age of Onset - Breast Cancer Maternal Grandmother - None Mother - None Father Social History Marital status: Single Spouse name: Years of education: Number of children: 0 Occupational History Occupation Employer Comment [employer]* STUDENT Social History Main Topics Smoking status: Current Every Day Smoker Packs/day: 0.50 Years: 0.00 Types: Cigarettes Smokeless tobacco: Never Used Comment: *Currently using E-Cig Alcohol use: No Drug use: No Sexual activity: Yes Partners with: Male control/protection: Pill EXAM: BP 110/68 (BP Site: Right Arm, BP Position: Sitting, BP Cuff Size: Regular Adult) Pulse 70 Resp 12 Wt 57.2 kg (126 lb) PHYSICAL EXAM: General Appearance: Well appearing, alert, in no acute distress, well-hydrated, well nourished.. Skin: Skin color, texture, turgor normal, no suspicious rashes or lesions. Right eye with red area just lateral and inferior to the lower lid. Red and slightly papular in nature. Head: Normocephalic, no masses, lesions, tenderness or abnormalities. Eyes: Anicteric sclera. Extraocular movements are intact. PERRLA. Conjunctiva is not injected. Neurologic: Gait normal. ASSESSMENT/PLAN: 1. Dermatitis - ICD9: 692.9, ICD10: L30.9 - Topical steriod tx with OTC 1% Hydrocortisone cream Notify provider if not improving or worsening. Discussed treatment plan and patient voices understanding. Patient's questions answered appropriately. Medications and potential side effects were discussed and patient voices understanding. Return to the office as scheduled or as needed for worsening/no improvement. Marija Alves APRN.Marija Cabrera (Automotive Designer) 07/02/2017 3:34 PM Signed 1. Start hydrocortisone, a small amount to the affected area twice daily X 1-2 weeks. 2. If not improving, please let us know. Referring Provider: SELF [[id number]] Allergies As of Date: 07/02/2017 (No Known Allergies) Date Reviewed: 07/02/2017 Reviewed by: Claudette Ross Cma - Fully Assessed Reason for Visit: Recheck [92] Cmt: red bumps next to right eye X3 weeks- sometimes itchy and very dry Primary Visit Diagnosis:Dermatitis [L30.9] Prescriptions as of 07/02/2017 Sig: VITAMIN D-3 ORAL Take by mouth. SUMATRIPTAN 50 MG TABLET Take 50 mg tablet at onset of* AMITRIPTYLINE 10 MG TABLET Take 1 tablet by mouth daily * NICOTINE 14 MG/24 HR DAILY TR* Apply 1 Patch as directed vincent* NICOTINE 7 MG/24 HR DAILY TRA* Apply 1 Patch as directed vincent* CITALOPRAM 20 MG TABLET Take 1 tablet by mouth once d* NORGESTIMATE 0.25 MG-ETHINYL * Take one active pill daily, s* Problem List As Of Date 07/02/2017 Noted Resolved Acne Vulgaris: Inflammatory/Comedonal Grade III*INVALID FOR*07/25/2012 Striae Distensae: lower mid to lower back [L90.*INVALID FOR* Capsulitis [M77.9] INVALID FOR*07/25/2012 Headache [R51] INVALID FOR* Patellar tendinitis [M76.50] INVALID FOR*07/03/2011 Knee pain [M25.569] INVALID FOR*07/03/2011 Arcuate uterus [Q51.810] INVALID FOR* Dysmenorrhea [N94.6] INVALID FOR* Right shoulder pain [M25.511] INVALID FOR* Other instructions from your clinician: 1. Start hydrocortisone, a small amount to the affected area twice daily X 1-2 weeks. 2. If not improving, please let us know. Encounter Status:Closed by MARIJA ALVES CNP on 07/02/17 GC/CHLAMYDIA AMPLIF Collected: 05/03/2017 Status: F Source: GERMFASK 10:59 AM [facility] REPOSITORY TYPE CODE TESTS RESULT OUT OF REFERENCE UNITS RANGE LAB GCCTSR GC/Chlam Amp Cervix Source LAB GCAMPL GC Negative Amplification for Neisseria gonorrhoeae by amplification. LAB CLAMPL Chlamydia Negative Amplif for Chlamydia trachomatis by amplification. Performed By: #### GCCT #### [facility] [address] [place], [place] [address] CNOV Observed: 05/03/2017 Status: COMPLETED Source: GERMFASK 10:30 AM [facility] REPOSITORY Office Visit (WOOB) TINY GARCIA ([id number]) 1995 F Date Time Provider Department 05/03/17 10:30 AM EMELY MCDANIEL WODERREK During your visit today, we recorded the following information about you: Blood pressure Weight Last Period 100/72 56.9 kg 04/12/17 Emely Herrera MD 05/03/2017 2:54 PM Signed Tiny Sharma Jose is a 21 year old female who presents for concerns regarding vaginal infection. Pt reports increased white discharge with an odor for a few weeks. Pt reports has had some partner for last two years. Pt reports no h/o STDs or concerns for stds. Pt denies changing soaps or detergents. Pt reports has some pelvic discomfort with intercourse, otherwise no pain, no fevers. Pt reports has been trying to get for 4 mo- is not taking OCPs and is having regular cycles. Pt offers no other concerns today. PAST MEDICAL HISTORY Diagnosis Date - Acne - Menarche 2008 7th Grade - Migraines - PMH - PAST MEDICAL HISTORY OF 11/29/03, 6--2011 normal color vision - Tobacco use PAST SURGICAL HISTORY Procedure Laterality Date - NONE FAMILY HISTORY Problem Relation Age of Onset - Breast Cancer Maternal Grandmother - None Mother - None Father Social History Marital status: Single Spouse name: Years of education: Number of children: 0 Occupational History Occupation Employer Comment [employer]* STUDENT Social History Main Topics Smoking status: Current Every Day Smoker Packs/day: 0.50 Years: 0.00 Types: Cigarettes Smokeless status: Never Used Comment: *Currently using E-Cig Alcohol use: No Drug use: No Sexual activity: Yes Partners with: Male control/protection: Pill Current Outpatient Prescriptions: SUMAtriptan (IMITREX) 50 mg tablet Take 50 mg tablet at onset of migraine. If symptoms not resolved, may repeat dose 2 hours later. Max dose in 24 hours: 2 tablets. amitriptyline (ELAVIL) 10 mg tablet Take 1 tablet by mouth daily at bedtime. nicotine (NICODERM) 14 mg/24 hr Apply 1 Patch as directed every 24 hours. No smoking with patch. nicotine (NICODERM) 7 mg/24 hr Apply 1 Patch as directed every 24 hours. citalopram (CELEXA) 20 mg tablet Take 1 tablet by mouth once daily. Take 10mg (1/2 tablet for 1 week) and then increase to 20mg (whole tablet) norgestimate 0.25 mg-ethinyl estradiol 35 mcg (SPRINTEC) 0.25- 35 mg-mcg per tablet Take one active pill daily, skip placebos No current facility-administered medications for this visit. Allergies As of Date: 05/03/2017 (No Known Allergies) Fully Assessed 12/03/2016 REVIEW OF SYSTEMS Abdomen: No abdominal pain, nausea, vomiting, diarrhea, or constipation. Bladder: No dysuria, gross hematuria, urinary frequency, urinary urgency, or incontinence. Expanded ROS: GENERAL: Negative for fever Allergies and current medication updated:Yes EXAM: There were no vitals taken for this visit. GENERAL: pleasant, female in no apparent distress HEENT: Normocephalic and atraumatic NECK: Supple and full range of motion DERMATOLOGY: Normal, without lesions and non-icteric ABDOMEN: soft, non-tender and no masses PELVIC: external genitalia normal, normal Bartholin's glands, urethra, [place]'s glands, no vulvar lesions, no cervical lesions, good vaginal support, physiologic discharge present, normal appearing perineal body and perianal region BIMANUAL: uterus normal size, shape and consistency, no adnexal masses and non-tender NEURO: alert and oriented x3,exam grossly non-focal EXTREMITIES: normal ASSESSMENT AND PLAN: 21yo with vaginal discharge and odor- here for STD testing 1) BV, YEast, trich, gc/chlamydia today- no signs of infection today 2) OTC products reviewed - rephrese 3) vaginal hygiene reviewed 4) will call if any positive results- pt to make yearly exam - needs PAP. Emely Herrera MD Referring Provider: NO PCP [[id number]] Allergies As of Date: 05/03/2017 (No Known Allergies) Date Reviewed: 05/03/2017 Reviewed by: Jacqueline Cruz Ma - Fully Assessed Reason for Visit: Problem Visit [Other] Primary Visit Diagnosis:Vaginal discharge [N89.8] Other Visit Diagnoses:Screen for STD (sexually transmitted disease) [Z11.3] Vaginal odor [N89.8] Order(s):GC/CHLAMYDIA DNA DET [SQGCCAMP] Order #: [id number] BACTERIAL VAGINOSIS SCORED GRAM STAIN [SQBVSTN] Order #: [id number] VAGINAL SMEAR FOR IMSTY [SQCANSTN] Order #: [id number] TRICHOMONAS PREP [SQTRICHO] Order #: [id number] Prescriptions as of 05/03/2017 Sig: VITAMIN D-3 ORAL Take by mouth. SUMATRIPTAN 50 MG TABLET Take 50 mg tablet at onset of* AMITRIPTYLINE 10 MG TABLET Take 1 tablet by mouth daily * NICOTINE 14 MG/24 HR DAILY TR* Apply 1 Patch as directed vincent* NICOTINE 7 MG/24 HR DAILY TRA* Apply 1 Patch as directed vincent* CITALOPRAM 20 MG TABLET Take 1 tablet by mouth once d* NORGESTIMATE 0.25 MG-ETHINYL * Take one active pill daily, s* Medication notes this encounter SUMATRIPTAN 50 MG TABLET >> Jacqueline Cruz Ma 05/03/2017 10:32 AM >> JACQUELINE CRUZ MA WedMay 03, 2017 10:32 AM Not taking AMITRIPTYLINE 10 MG TABLET >> Jacqueline Cruz Ma 05/03/2017 10:31 AM >> JACQUELINE CRUZ MA WedMay 03, 2017 10:31 AM Not taking NICOTINE 14 MG/24 HR DAILY TRANSDERMAL PATCH >> Jacqueline Cruz Ma 05/03/2017 10:31 AM >> JACQUELINE CRUZ MA WedMay 03, 2017 10:31 AM Not taking NICOTINE 7 MG/24 HR DAILY TRANSDERMAL PATCH >> Jacqueline Cruz Ma 05/03/2017 10:32 AM >> JACQUELINE CRUZ MA May 03, 2017 10:32 AM Not taking NORGESTIMATE 0.25 MG-ETHINYL ESTRADIOL 35 MCG TABLET >> Jacqueline Cruz Ma 05/03/2017 10:32 AM >> JACQUELINE RCUZ MA May 03, 2017 10:32 AM Not taking Problem List As Of Date 05/03/2017 Noted Resolved Acne Vulgaris: Inflammatory/Comedonal Grade III*INVALID FOR*07/25/2012 Striae Distensae: lower mid to lower back [L90.*INVALID FOR* Capsulitis [M77.9] INVALID FOR*07/25/2012 Headache [R51] INVALID FOR* Patellar tendinitis [M76.50] INVALID FOR*07/03/2011 Knee pain [M25.569] INVALID FOR*07/03/2011 Arcuate uterus [Q51.810] INVALID FOR* Dysmenorrhea [N94.6] INVALID FOR* Right shoulder pain [M25.511] INVALID FOR* Disposition: Return in about 3 months (around 08/03/2017) for annual exam . Follow-up and Disposition History Recorded Encounter Status:Closed by EMELY MCCLAIN MD on 05/03/17 PROGRESS Observed: 05/03/2017 Status: COMPLETED Source: GERMFASK 10:27 AM [facility] REPOSITORY HNO ID: [id number] Author: Emely Mcclain Service: (none) Author Type: Physician Type: Progress Notes Filed: 05/03/2017 2:54 PM Note Text: Tiny Garcia is a 21 year old female who presents for concerns regarding vaginal infection. Pt reports increased white discharge with an odor for a few weeks. Pt reports has had some partner for last two years. Pt reports no h/o STDs or concerns for stds. Pt denies changing soaps or detergents. Pt reports has some pelvic discomfort with intercourse, otherwise no pain, no fevers. Pt reports has been trying to get for 4 mo- is not taking OCPs and is having regular cycles. Pt offers no other concerns today. PAST MEDICAL HISTORY Diagnosis Date - Acne - Menarche 2007 7th Grade - Migraines - PMH - PAST MEDICAL HISTORY OF 11/29/03, 07-27-2011 normal color vision - Tobacco use PAST SURGICAL HISTORY Procedure Laterality Date - NONE FAMILY HISTORY Problem Relation Age of Onset - Breast Cancer Maternal Grandmother - None Mother - None Father Social History Marital status: Single Spouse name: Years of education: Number of children: 0 Occupational History Occupation Employer Comment [employer]* STUDENT Social History Main Topics Smoking status: Current Every Day Smoker Packs/day: 0.50 Years: 0.00 Types: Cigarettes Smokeless status: Never Used Comment: *Currently using E-Cig Alcohol use: No Drug use: No Sexual activity: Yes Partners with: Male control/protection: Pill Current Outpatient Prescriptions: SUMAtriptan (IMITREX) 50 mg tablet Take 50 mg tablet at onset of migraine. If symptoms not resolved, may repeat dose 2 hours later. Max dose in 24 hours: 2 tablets. amitriptyline (ELAVIL) 10 mg tablet Take 1 tablet by mouth daily at bedtime. nicotine (NICODERM) 14 mg/24 hr Apply 1 Patch as directed every 24 hours. No smoking with patch. nicotine (NICODERM) 7 mg/24 hr Apply 1 Patch as directed every 24 hours. citalopram (CELEXA) 20 mg tablet Take 1 tablet by mouth once daily. Take 10mg (1/2 tablet for 1 week) and then increase to 20mg (whole tablet) norgestimate 0.25 mg-ethinyl estradiol 35 mcg (SPRINTEC) 0.25- 35 mg-mcg per tablet Take one active pill daily, skip placebos No current facility-administered medications for this visit. Allergies As of Date: 05/03/2017 (No Known Allergies) Fully Assessed 12/03/2016 REVIEW OF SYSTEMS Abdomen: No abdominal pain, nausea, vomiting, diarrhea, or constipation. Bladder: No dysuria, gross hematuria, urinary frequency, urinary urgency, or incontinence. Expanded ROS: GENERAL: Negative for fever Allergies and current medication updated:Yes EXAM: There were no vitals taken for this visit. GENERAL: pleasant, female in no apparent distress HEENT: Normocephalic and atraumatic NECK: Supple and full range of motion DERMATOLOGY: Normal, without lesions and non-icteric ABDOMEN: soft, non-tender and no masses PELVIC: external genitalia normal, normal Bartholin's glands, urethra, [place]'s glands, no vulvar lesions, no cervical lesions, good vaginal support, physiologic discharge present, normal appearing perineal body and perianal region BIMANUAL: uterus normal size, shape and consistency, no adnexal masses and non-tender NEURO: alert and oriented x3,exam grossly non-focal EXTREMITIES: normal ASSESSMENT AND PLAN: 21yo with vaginal discharge and odor- here for STD testing 1) BV, YEast, trich, gc/chlamydia today- no signs of infection today 2) OTC products reviewed - rephrese 3) vaginal hygiene reviewed 4) will call if any positive results- pt to make yearly exam - needs PAP. Emely Herrera MD Observed: 05/03/2017 Status: F Source: GERMFASK BACT/CAND VAG GRM ST 12:51 AM [facility] REPOSITORY Sp. Request/Comment: - Swab Smear Result - BACTERIAL VAGINOSIS RESULT: Stain results consistent with normal vaginal bonnie. No Yeast observed Rare Polymorphonuclear leukocytes Performed By: #### BVCNSM #### [facility] [address] [place] [address] Observed: 05/03/2017 Status: F Source: GERMFASK TRICHOMONAS PREP 12:48 AM [facility] REPOSITORY Sp. Request/Comment: - Swab Smear Result - Negative for Trichomonas vaginalis antigen This test was developed and its performance characteristics determined by [facility]'s Ravindra Jefe [facility] Pathology and Laboratory Medicine [place] ([facility]). It has not been cleared or approved by the FDA. [facility] is regulated under CLIA as qualified to perform high-complexity testing. This test is used for clinical purposes. It should not be regarded as investigational or for research. Performed By: #### TRICHO #### [facility] [address] [place] [address] ALLERGIES ALLERGIES DATE TYPE / CODE NAME / CODE REACTION SEVERITY SOURCE 02/01/2018 Drug No Known Unknown [facility] Allergy/416 Allergies/I59491 [facility] 670827(SNOM 0388(RXNORM) Repository ED CT) Drug NO KNOWN [facility] Class/39174 ALLERGIES [facility] 1003(SNOMED Repository CT) ENCOUNTERS ENCOUNTERS ADMIT/DISCHARGE ACCOUNT ADMITTING ENCOUNTER LOCATION SOURCE NUMBER CLASS 03/11/2018/03/14/19 [id number] Ambulatory [address] [place] Repository 02/25/2018/02/28/19 [id number] Ambulatory [address] Repository 02/03/2018/02/08/20 [id number] Ambulatory [address] Repository 02/02/2018/02/04/20 [id number] Ambulatory [address] Repository 02/01/2018/02/02/20 [id number] Emergency [place] ing:ED Repository 01/31/2018/02/01/20 [id number] Ambulatory [address] Repository 01/30/2018/02/02/20 [id number] Ambulatory [address] Repository 01/24/2018/01/26/20 [id number] Ambulatory [address] Repository 12/01/2017 [id number] Ambulatory [facility] ing:PSN Repository 08/13/2017/08/14/19 [id number] Ambulatory [address] Repository 08/13/2017/08/17/19 [id number] Ambulatory [address] Repository 08/03/2017/08/06/19 [id number] Ambulatory [address] Repository 07/30/2017/08/03/19 [id number] Ambulatory [address] Repository 07/02/2017 [id number] Ambulatory [facility] Repository 05/03/2017/05/07/19 [id number] Ambulatory [address] Repository PAYERS PAYERS ENCOUNTER GUARANTOR PAYER SUBSCRIBER SOURCE 02/01/2018 Tiny Sharma Primary Tiny Palmer [id number] EMERITA Insurance:ANTHEMPolic [place] Number: [id number] [id number]: [id number] Repository [phone] () Date:[id number] [address] [address]MJ: 02/01/2018 Secondary NOT GIVENUNK Estela Insurance:SELF PAY [facility] Number: Effective Repository Date:2018-02-01 12/01/2017 Tiny Sharma Primary Tiny Palmer [id number] EMERITA Insurance:ANTHEMPolic SwazeyDOB: [facility] jaciel HUNT Number: [id number] [address]Uvq: [id number]) [id number] Repository [phone] () Date:[id number], [place] [address]ST: 12/01/2017 Secondary NOT GIVENUNK Estela Insurance:SELF PAY [facility] Number: Effective Repository Date:2017-08-31
== END 2018-02-01 02:27 | disposition home or self-care (01) ==
LOC: ED 01:11
PROVIDERS: Emergency Provider Emergency Medicine; Family Provider Family Medicine; PCP Family Medicine
DX: N83.202 Unspecified ovarian cyst, left side (principal); Z72.0 Tobacco use
CPT/HCPCS: 74176; 81001; 84703; 99282

== ENCOUNTER 2018-05-30 05:54 | Day surgery (SDC) | payer BC, SELFPAY ==
--- NOTE | 2018-05-19 15:01 | PCM.HP.BLA ---
History and Physical Date of Admission: 05/30/18 Surgical History and Physical Tiny Garcia, a 23 year old female 0 0 0 0 0, presents for Dx L/S, Chromopertubation on May 30, 2018 at 7:30. -- Pelvic Pain, Ovarian Cyst -- Reports about 4 months ago she had an US done as she was having a lot of LLQ, with repeat of US on 03-31-18 to check for size change in the two months as she had been placed on OCP's to try an down regulate the ovaries. Diagnosed with Endometrioma on (L) Ovary and had grown in size from first US(records attached). Endometrioma on (L) Ovary which began US done x 2 most recent 03/31/18. Tiny claims it started suddenly and has been present 4 months. It occurs all the time. It is located in the painful in last 1-2 months. Tiny characterizes the quality cramping. Tiny characterizes the quality searing. Tiny characterizes the quality stabbing. Severity is moderate and not improving and very concerned; Associated signs and symptoms are pain all the time except when on menses; has been worsening over the years; OCPs not helpful; attempting for about a year. Additional comments are: u/s x 2 normal except possible 4 cm left endometrioma. MEDICATIONS HISTORY: Patient is also takin. Sprintec (28) 0.25 mg-35 mcg tablet, One pill by mouth once a day 2. Tylenol-Codeine #3 300 mg-30 mg tablet, As Directed ALLERGIES: No Known Allergies Infections - Vaccines Illnesses - Migraines Accidents - None Hospitalizations - None Review of Systems: GENERAL - Denies fever, or chills SKIN - Denies skin changes EYES - Denies visual changes EARS - Denies difficulty hearing NOSE - Denies nasal congestion or bleeding MOUTH - Denies sore throat or difficulty swallowing NECK - Denies pain or swelling RESPIRATORY - Denies shortness of breath or wheezing CARDIOVASCULAR - Denies palpitations or chest pain GASTROINTESTINAL - Denies nausea, vomiting, diarrhea, constipation GENITOURINARY - Denies dysuria, frequency of urination, incontinence of urine MUSCULOSKELETAL - Denies joint or muscle pain NEUROLOGICAL - Denies localized numbness or weakness PSYCHIATRIC - Denies depression or anxiety ENDOCRINE - Denies heat or cold intolerance, weight loss or gain HEMATO-IMMUNOLOGIC - Denies excesive bleeding with cuts SOCIAL HISTORY: Alcohol Use - RARELY Smoking - 5 cigarettes daily (ATQ) Diet - no special diet Lifestyle - moderate stress lifestyle and single Exercise - active Seat Belt Use - always 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 Illicit Drug Use - None Sexual Activity - ACTIVE ONE PARTNER Control - Control Pills FAMILY HISTORY: MENSTRUAL HISTORY: LMP Known?- DefiniteAmount/Duration - 5-6 DAYS, Regularity - Irregular, Frequency - variable days, LMP - 04/20/18, Age Onset Menarche - 12 PAST PREGNANCIES: Total Pregnancies - 0; Full Term Pregnancies - 0; Premature - 0; Abortions, Induced - 0; Abortions, Spontaneous - 0; Ectopics - 0; Multiple Births - 0; Living Children - 0 PHYSICAL EXAM BP- 128/70 Sitting, Right arm, regular cuff Weight- 133.16544 lbs Height- 65 inch BMI:22.18 CONSTITUTIONAL - NAD, well nourished, and well developed SKIN - No rash, lesions, or ulcers HEENT - Normocephalic, PERRLA, EOMI NECK - No nodes, no nuchal rigidity and thyroid normal size and texture LYMPH NODES - Palpation of lymph nodes in neck and groins within normal limits LUNGS - CTA x2 without wheezes, crackles or rales CARDIAC - Regular rate and rhythm without rubs, murmurs, or gallops ABDOMEN - Without hepatosplenomegaly, distention, masses, rebound, or guarding; normal bowel sounds; no hernias EXTREMITIES - No edema or calf tenderness NEUROLOGICAL - Cranial nerves II-XII grossly intact PSYCHIATRIC - A and O to time, place, person, mood and affect External Genitial Vagina - non-tender without lesions Urethra/Urethral Meatus - non-tender Bladder - increased tenderness Vagina - vaginal felix are pink and moist without loss of rugae and no evidence of atropy Cervix - Marked CMT Uterus - increased tenderness and nulliparous size 5 cm & wt 70 g Adnexa - increased tenderness both adnexa and no masses ASSESSMENT/PLAN: 1. Ovarian Cyst Nos, Pelvic Pain Likely endometriosis by time course, exam, ultrasound findings and physical exam. Discussed options including Lupron or Orilissa, , expectant management, or Dx L/S and pt desires the surgery for definitive dx and to check tubal patency. Discussed RBAs and all questions answered.
[2018-05-27 15:39] LABS: Pregnancy, Serum, hCG Quali. NEGATIVE Negative (0-9 Nonpreg)
[2018-05-30 06:19] VITALS: BP 111/58; PULSE 88; RESP 18; TEMP 37.4; O2SAT 97; BMI 21.7
[2018-05-30 06:27] LABS: Hematocrit 42.6 % (37-47); Hemoglobin 14.2 g/dl (12.0-15.0); Mean Corp Hgb Conc 33.3 g/gl (32-36); Mean Corpuscular Hgb 30.8 pg (27.0-32.0); Mean Corpuscular Volume 92.4 fL (81-99); Mean Platelet Vol. 10.5 fl (6.2-12.0); Platelet Count 209 K/mm3 (150-450); RBC Distribution Width CV 12.5 % (11.6-14.6); RBC Distribution Width SD 41.9 fl (35.1-43.9); Red Blood Count 4.61 M/mm3 (4.2-5.4); White Blood Count 9.3 K/mm3 (4.4-11.0)
[2018-05-30 06:30] LABS: Internal QC Validated? YES +Cl - CLEAR BKGD; Pregnancy, Urine Negative Negative
[2018-05-30 06:33] LABS: Scan Indicated on CBC? Y/N NO
--- NOTE | 2018-05-30 07:26 | OP.PCM_ITS ---
Report of Operation Date of Procedure: 05/30/18 Pre-Operative Diagnosis: Left Ovarian Cyst, Pelvic Pain Post-Operative Diagnosis: Left Ovarian Endometrioma Cyst, Pelvic Pain, Severe Endometriosis Surgery/Procedure Performed:: Diagnostic Laparoscopy, Drainage of Left Ovarian Endometrioma, Chromopertubation Description of Surgical Findings:: Severe endometriosis. Otherwise, normal-appearing cervix and 8 cm uterus. Severe endometriosis with implants on both ovaries, across urinary bladder, and in cul-de-sac, 5 cm left ovarian endometrioma. Normal-appearing right ovary and tube except for endometriosis implants. Patent right fallopian tube; occluded left fallopian tube; adherence of the left fallopian tube and ovary to left pelvic sidewall. Type of Anesthesia:: General - Endotracheal Anesthesiologist: Liset Menezes Estimated Blood Loss (mL): Minimal Fluids Replaced: Crystalloid Description of Procedure: Surgeon: Tim Briones MD, FACOG Indications: This is a 23 year old patient who has been having problems with chronic left lower quadrant pain. Ultrasound suggested a left ovarian endometrioma. Before starting medication for endometriosis the patient desired to surgically confirm the diagnosis of endometriosis. Given this the above surgery was planned. All questions were answered to reconsider the patient well-informed. She also understands that there is no guarantee that this procedure will relieve her of the pain that she has been having. Procedure: The patient was taken to the operating room where after induction of general anesthesia, she was placed in the dorsolithotomy position and prepped and draped in the usual sterile fashion. The bladder was drained of approximately 50 cc of clear yellow urine with a catheter. Anterior cervix was grasped with the tenaculum and Conn cannula was placed; attention was turned toward the laparoscopic portion of the procedure. Approximately 15 cc of half percent ropivacaine was injected subumbilically and suprapubically. A 5 mm bladeless trocar was placed subumbilically and intraperitoneal placement confirmed. After CO2 insufflation was complete, a 5 mm bladeless trocar was introduced suprapubically under direct visualization. The above findings were noted. Each fallopian tube was identified to its fimbriated end. Monopolar cautery was used to open the left endometrioma for approximately 0.5 cm and the chocolate material was drained with the Endo suction device. Methylene blue solution was injected via the con cannula and was noted to spill easily from the left fallopian tube but no spill was noted from the right fallopian tube. Pelvis was copiously irrigated and photographs were taken. Laparoscopic instruments with as much CO2 gas as possible were removed and incisions were closed with interrupted 4-0 Monocryl suture. Steri- Strips placed across the incision. Patient tolerated procedure well was taken to recovery room in satisfactory condition sponge instrument and needle counts were all reportedly correct. Estimated blood loss for the case was minimal. Specimens to pathology was none. Grafts/Implants Used: None - Complications None - Admit VTE Documentation VTE Present on Admission: Yes VTE Mechan Device Prophylaxis: SCD's
--- NOTE | 2018-05-30 07:29 | DCINST_ITS ---
Discharge Diet: No Restrictions - Increase fluid intake for the next 48 hours. Discharge Activity: Return to Normal Activity, May Drive - when you are no longer taking pain/narcotic medicines., May Shower, May Take a Tub Bath Additional Activity Instructions:: Ambulate often the next week after surgery. Nothing in the vagina for 5 days. Call your doctor if your incision/area has: Continuous Slow Oozing, Sudden Increased Bleeding, Increased Pain/ Swelling, Increased Redness, Foul Smelling Discharge Call your doctor if you observe: Fever of 101 or Higher, Inability to urinate, Inability to have a bowel movement, Using more than one pad per hour Allergies/Adverse Reactions: Allergies No Known Allergies Allergy (Verified 05/23/18 10:49) Medications to take at Discharge Cholecalciferol (Vitamin D3) [Vitamin D3] 250 unit PO DAILY 05/23/18 Hydrocodone/Acetaminophen [[place] 5-325 Tablet] 1 ea PO Q6H PRN PRN 7 Days #10 tab 05/30/18 The following prescriptions were given: Hydrocodone/Acetaminophen [[place] 5-325 Tablet] 1 ea PO Q6H PRN PRN 7 Days #10 tab PRN Reason: Severe Pain (-12/01) Primary Care Physician: Murtaza Mcclure MD [Primary Care Provider] - Test Results: Test results from this visit will be discussed in further detail at your follow- up appointment, if applicable. Please Follow Up With: Tim Briones MD - [phone] When: 2-3 weeks
[2018-05-30] MEDS: Ropivacaine 0.5% 30 ML Vial (07:50)
[2018-05-30] MEDS: Methylene Blue 1% 100 MG/10 ML VIAL (07:55)
[2018-05-30 08:27] VITALS: BP 111/58; BP 118/76; PULSE 80; RESP 16; TEMP 37.1; O2SAT 100
[2018-05-30 08:30] VITALS: BP 111/58; BP 117/78; PULSE 73; RESP 16; O2SAT 100
[2018-05-30] MEDS: Lactated Ringers 1,000 ML 100 ML IV (08:44)
[2018-05-30 08:45] VITALS: BP 110/69; BP 111/58; PULSE 70; RESP 16; O2SAT 98
[2018-05-30 08:49] VITALS: BP 102/57; BP 111/58; PULSE 62; RESP 16; TEMP 37.2; O2SAT 98
[2018-05-30 09:53] VITALS: BP 106/62; BP 111/58; PULSE 62; RESP 16; TEMP 37.1; O2SAT 99
== END 2018-05-30 09:55 | disposition home or self-care (01) ==
LOC: SDC 05:56 → AC 05:56
PROVIDERS: Family Provider Family Medicine; PCP Family Medicine; Referring Provider Obstetrics & Gynecology; Visit Provider Obstetrics & Gynecology
PROC: (CPT 49320; principal; 2018-05-30 07:15)
DX: N80.1 Endometriosis of ovary (principal); N97.1 Female infertility of tubal origin; F17.210 Nicotine dependence, cigarettes, uncomplicated
CPT/HCPCS: 49322; 58350; 36415; 81025; 84703; 85027; J7120; J2405

== ENCOUNTER 2019-01-01 17:43 | Emergency (ER) | payer BC, SELFPAY ==
[2019-01-01 17:44] VITALS: BP 123/70; PULSE 90; RESP 17; TEMP 36.6; O2SAT 100; BMI 21.8
--- NOTE | 2019-01-01 17:52 | ED.VISSUMM ---
- ER Visit Summary Date of Service: 01/01/19 Chief Complaint: Migraine headache History of Present Illness: The patient is a 23 F presenting with headache. Patient states this started gradually today. She has nausea with no vomiting. She denies fever. She has tried ibuprofen at home. She also complains of bilateral hand tingling and tingling around her mouth. She believes she was breathing fast when the symptoms started. They are starting to improve. She denies other complaints. Physical Examination: Vitals are stable. Patient is afebrile. Alert no acute distress. HEENT exam is unremarkable. Neck is supple. No meningismus Lungs are clear and equal bilaterally. Heart is regular rate and rhythm. Abdomen is soft nontender nondistended. Extremities are unremarkable. Skin is warm and dry. No focal neurologic deficit. Remainder of exam is unremarkable. Emergency Department Course and Treatment: She was given IV fluids, Reglan, Benadryl. On reevaluation, she is feeling much improved. She is advised to follow-up with her primary care physician. Advised to return to the ED for worsening complaints. Disposition: Discharge home Impression: Headache This note was generated with [employer] dictation software. It may contain incorrect words, spelling, and punctuation that were not noted in review of the chart prior to signing ED Disposition - Plan for ED Patient: Instructions: HEADACHE, Unspecified Referrals: Murtaza Mcclure MD [Primary Care Provider] -
[2019-01-01] MEDS: 0.9% Normal Saline 1,000 ML 999 ML IV (18:05)
[2019-01-01] MEDS: DiphenhydrAMINE 50 MG/ML Syringe 25 MG IV (18:10)
[2019-01-01] MEDS: Metoclopramide 10 MG/2 ML Vial IV (18:10)
--- NOTE | 2019-01-01 19:19 | ED.DEP ---
ED Disposition - Plan for ED Patient: Instructions: HEADACHE, Unspecified Referrals: Murtaza Mcclure MD [Primary Care Provider] -
== END 2019-01-01 19:31 | disposition home or self-care (01) ==
LOC: ED 18:05
PROVIDERS: Emergency Provider Emergency Medicine; Family Provider Family Medicine; PCP Family Medicine
DX: G43.909 Migraine, unspecified, not intractable, without status migrainosus (principal); Z72.0 Tobacco use
CPT/HCPCS: 96361; 96374; 96375; 99283; J7030; A4216

== ENCOUNTER 2019-04-17 08:02 | Day surgery (SDC) | payer BC, SELFPAY ==
[2019-04-12 11:04] VITALS: BMI 21.8
[2019-04-12 13:47] LABS: Hematocrit 43.4 % (37-47); Hemoglobin 14.3 g/dL (12.0-15.0); Mean Corp Hgb Conc 32.9 g/dL (32-36); Mean Corpuscular Hgb 30.8 pg (27.0-32.0); Mean Corpuscular Volume 93.3 fL (81-99); Mean Platelet Vol. 10.8 fl (6.2-12.0); Platelet Count 156 K/mm3 (150-450); RBC Distribution Width CV 12.2 % (11.6-14.6); RBC Distribution Width SD 42.2 fl (35.1-43.9); Red Blood Count 4.65 M/mm3 (4.2-5.4); White Blood Count 7.4 K/mm3 (4.4-11.0)
[2019-04-12 13:57] LABS: Partial Thromboplast Time 26.7 Seconds (24.1-36.2); Prothrombin Time (Protime)PT. 13.3 SECONDS (11.7-14.9)
[2019-04-12 14:35] LABS: Internal QC Validated? YES +Cl - CLEAR BKGD; Pregnancy, Serum, hCG Quali. NEGATIVE Negative
--- NOTE | 2019-04-13 12:52 | HP_ITS ---
Intake Vital Signs 04/12/19 BMI 21.8 04/12/19 Height 5 ft 5 in 04/12/19 Weight: 130 lb 04/12/19 BMI 21.6 04/12/19 BP 120/78 04/12/19 Blood Pressure Location Rt brachial 04/12/19 Position Sitting 04/12/19 Respiration 16 04/12/19 Pulse 104 H 04/12/19 Pulse Source Monitor 04/12/19 Temp 98.5 F 04/12/19 Temp Source Oral 04/12/19 Pulse Oximetry (%) 97 04/12/19 Oxygen Delivery Method room air Intake Visit Reasons: lap appy consult alvin 2-24 sx Is patient in pain?: Yes (left ovary) Pain scale (1-10): 5 Allergies No Known Allergies Allergy (Verified 04/12/19 10:35) Medications Elagolix Sodium [Orilissa] 1 tab PO BID 01/01/19 [History Confirmed 04/12/19] Multivitamin [Multiple Vitamins] 1 ea PO DAILY 04/10/19 [History Confirmed 04/12/19] cholecalciferol (vitamin D3) 1,250 mcg (50,000 unit) capsule 1,250 mcg PO DAILY 04/12/19 [History Confirmed 04/12/19] PFSH Medical History LLQ pain (Acute) Ovarian cyst (Acute) Surgical History Hx of laparoscopy (Acute) Family History Brother Thyroid disorder Sister Thyroid disorder Social History (Updated 04/13/19 @ 12:[address] Abhi Encarnacion MD) Smoking Status: Never smoker second hand exposure: No alcohol intake: current alcohol intake frequency: a few times a month substance use type: does not use caffeine: Yes what type of physical activity do you participate in: running, weight training frequency: 5-6 times per week HPI HPI HPI: PREMA JACKSON, is a 23 F who presents to the office today for HPI HPI Surgical H&P: Yes HPI: PREMA JACKSON, is a 23 F who presents to the office today for laparoscopic appendectomy consult. The patient has been dealing with endometriosis for a long time. She had an endometrioma May of last year which was evacuating during laparoscopy. She has been having pelvic pain ever since. She is going for a left oophorectomy and has been requested that she had a laparoscopic appendectomy to differentiate her pelvic pain is endometriosis without the suspicion of appendicitis. ROS General General: No weight change, appetite, fatigue, colon cancer, breast cancer or weakness HEENT HEENT: No difficulty swallowing, eye injury, eye surgery, swollen glands or hoarseness Endo Endocrine: No thyroid disease, diabetes mellitus, thyroid cancer, Hair loss, heat intolerance or cold intolerance Skin Skin: No rash or changing moles Musc Musculoskeletal: No back problems, arthritis, rheumatoid arthritis, gout or joint pain Cardio Cardiovascular: No murmur, pacemaker, heart disease, atrial fibrillation, high blood pressure, heart attack, heart stent, palpitations, shortness of breat with exertion or chest pain Psych Psychiatric: No depression, anxiety or hearing voices Resp Respiratory: No shortness of breath, No sleep apnea, No cough, No COPD, No asthma, No emphysema, No wheezing Gastro Gastrointestinal: Yes abdominal pain, No nausea or vomiting, No diarrhea, No constipation, No blood in stool, No acid reflux, No hemorrhoids, No ulcers, No gallbladder problem, No black,tarry stools Neuro Neurologic: No weakness Exam Const General: cooperative Orientation: alert, oriented x3 Resp Effort & Inspection: normal respiratory effort Auscultation: clear to auscultation bilaterally Cardio Rate: regular rate Rhythm: regular rhythm Heart Sounds: no murmurs GI Inspection: non-distended Palpation: soft, nontender Assessment & Plan Problems 1. Endometriosis N80.9 2. Pelvic pain R10.2 Plan The patient is having a left oophorectomy by Dr. Briones next week. He requested I perform an appendectomy at the same time. The patient has been having pelvic pain for 2 years and has had multiple work-ups for this. They would like to remove appendicitis from the differential diagnosis for her pelvic pain next time she is having it and comes into the emergency room. I discussed laparoscopic appendectomy during her case with her. I discussed the risks of bleeding, infection, injury to surrounding organs such as the colon, ureter, bladder. The patient understands the risks and is willing to proceed with laparoscopic appendectomy a during left oophorectomy. Abhi Encarnacion MD Pager: [facility] [address] [place] [address], [address] [place] [address] Office: Coding Level of Care Code Off vis,new,level 3 Diagnoses Endometriosis N80.9 Pelvic pain R10.2 04/13/19 1252 <Electronically signed by Abhi oquendo MD> Date _ Abhi Encarnacion MD I have re-examined the patient. There are no clinical changes since date of exam.
--- NOTE | 2019-04-16 22:25 | HP.PCM_ITS ---
History and Physical Date of Admission: 04/17/19 Surgical History and Physical Date: 04/16/2019 Name: PREMA JACKSON Age: 23 Date of : 1995 Prema Jackson, a 23 year old female 0 0 0 0 0, presents for L/S LSO per JW; appy per Rosio,Jeffry or Alysha on April 17, 2019 at 10:00. -- Ovarian Cyst; Recurrent Pelvic Pain and Endometriosis -- Reports about 4 months ago she had an US done as she was having a lot of LLQ, with repeat of US on 03-31-18 to check for size change in the two months as she had been placed on OCP's to try an down regulate the ovaries. Diagnosised with Endometrioma on (L) Ovary and had grown in size from first US(records attached). Currently using nothing for control. Pt had Diagnostic Laparoscopy with Chromopertubation on 05-30-18. Pt has been on Orlissa since June 2018 and she states about 5-6 months ago she has had constant pain. The pain is somtimes more painful than others. Endometriosis which began years ago. Prema characterizes the quality sharp. Prema characterizes the quality painful. Severity is moderate. MEDICATIONS HISTORY: ALLERGIES: No Known Allergies Infections - Vaccines Illnesses - Migraines Accidents - None Hospitalizations - None Review of Systems: GENERAL - Denies fever, or chills SKIN - Denies skin changes EYES - Denies visual changes EARS - Denies difficulty hearing NOSE - Denies nasal congestion or bleeding MOUTH - Denies sore throat or difficulty swallowing NECK - Denies pain or swelling RESPIRATORY - Denies shortness of breath or wheezing CARDIOVASCULAR - Denies palpitations or chest pain GASTROINTESTINAL - Denies nausea, vomiting, diarrhea, constipation GENITOURINARY - Denies dysuria, frequency of urination, incontinence of urine MUSCULOSKELETAL - Denies joint or muscle pain NEUROLOGICAL - Denies localized numbness or weakness PSYCHIATRIC - Denies depression or anxiety ENDOCRINE - Denies heat or cold intolerance, weight loss or gain HEMATO-IMMUNOLOGIC - Denies excesive bleeding with cuts SOCIAL HISTORY: Alcohol Use - RARELY Smoking - 1/2 pack/day--advised to quit Diet - no special diet Lifestyle - moderate stress lifestyle and single Exercise - active Seat Belt Use - always 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 05/30/2018 dx laparoscopy, drainage of Left ovarian endometrioma, chrompertubation ; Tim Briones M.D. PHYSICAL EXAM BP- 130/70 Sitting, Right arm, regular cuff Weight- 140.94463 lbs Height- 65 inch BMI:23.35 CONSTITUTIONAL - NAD, well nourished, and well developed SKIN - No rash, lesions, or ulcers HEENT - Normocephalic, PERRLA, EOMI NECK - No nodes, no nuchal rigidity and thyroid normal size and texture LYMPH NODES - Palpation of lymph nodes in neck and groins within normal limits LUNGS - CTA x2 without wheezes, crackles or rales CARDIAC - Regular rate and rhythm without rubs, murmurs, or gallops ABDOMEN - Without hepatosplenomegaly, distention, masses, rebound, or guarding; normal bowel sounds; no hernias EXTREMITIES - No edema or calf tenderness NEUROLOGICAL - Cranial nerves II-XII grossly intact PSYCHIATRIC - A and O to time, place, person, mood and affect External Genitial Vagina - non-tender without lesions Urethra/Urethral Meatus - non-tender Bladder - increased tenderness Vagina - vaginal felix are pink and moist without loss of rugae and no evidence of atropy Cervix - Marked CMT Uterus - increased tenderness and nulliparous size 5 cm & wt 70 g Adnexa - increased tenderness both adnexa and no masses Pap - deferred as was recently done ASSESSMENT/PLAN: 1. Endometriosis Of Pelvic Peritoneum, Pelvic Pain and Unspec Known severe endometriosis proven with laparoscope with implants on both right and left with left endometrioma and non-patent left tube. For now pain primarily on left. Desires we proceed with LSO. Discussed RBAs and all questions answered. With severe endometriosis also recommended appendix removal per Dr. Encarnacion. Discussed RBAs including possibility of pain moving to the right side. All questions answered.
[2019-04-17 08:35] VITALS: BP 112/66; PULSE 79; RESP 16; TEMP 37.2; O2SAT 95; BMI 22.4
[2019-04-17 08:39] LABS: Internal QC Validated? YES +Cl - CLEAR BKGD; Pregnancy, Urine Negative Negative
[2019-04-17] MEDS: Lactated Ringers 1,000 ML 100 ML IV (08:42)
--- NOTE | 2019-04-17 09:30 | OV_PTH ---
PATIENT: PREMA JACKSON [place] [facility] [id number] AGE/SX: 23/ ROOM: RE04/17/[address]: Dr. Tim Briones MD : 1995 BED: DIS: 04/17/2019 SPEC #: [id number] RECD: 04/17/19 12:19 STATUS: RATNA RELarry #: [id number] ALFIE: 04/17/19 09:[address]: Tim Briones DEPT: SURGICAL PATHOLOGY RECD BY: Crow Sullivan ENTERED: 04/17/19 13:35 SP TYPE: OVARY OTHR DR: MD Dr. Murtaza Vallejo MD Tissues: A - Left ovary B - Appendix, NOS Procedures: Surgery Specimen Level IV Surgery Specimen Level V HEADER OPERATION: Laparoscopic salpingo-oophorectomy PRE-OP DIAGNOSIS: Endometriosis, pelvic pain TISSUE SUBMITTED: A - Left fallopian tube and ovary, B - Appendix MICROSCOPIC DIAGNOSIS A. Left fallopian tube and ovary, salpingo-oophorectomy: Ovary - Focal changes suggestive of endometriosis. - Physiologic follicular cysts. Fallopian tube - no pathologic diagnosis. B. Appendix, appendectomy: Appendix, no pathologic diagnosis. See comment. SJ:slade 04/18/19 COMMENT B. Entire appendix is examined. This case has been reviewed in consultation with Dr. Cool who concurs with the above diagnosis. MICROSCOPIC DESCRIPTION Slides are reviewed. GROSS DESCRIPTION A - Received in fixative is one container labeled with the patient's name and designated left fallopian tube and ovary. The specimen consists of a fallopian tube and ovary in multiple pieces. The fallopian tube measures 6 cm in length and 0.5 cm in diameter. The fimbrial end is identified. Sections do not reveal any mass lesion. The largest piece of ovary measures 3.5 x 2.5 x 1.5 cm. Multiple smaller pieces are also noted measuring in aggregate 2.5 x 2 x 0.5 cm. Sections reveal a cyst measuring 1.5 cm in greatest dimension. No cystic contents are identified. Explosives Engineer sections are submitted in six cassettes as follows: 1 - fallopian tube, 2-6 - ovary, entirely submitted. B - Received is one container labeled with the patient's name and designated appendix. The specimen consists of an appendix measuring 5.2 cm in length and up to 0.5 cm in diameter. The attached periappendiceal adipose tissue measures up to 1.7 cm in width. No obvious perforation is identified. The lumen contains fecal material. No fecalith is identified. Explosives Engineer sections are submitted in two cassettes. The entire appendix is submitted. / SJ:slade 04/17/19 TC:5 CPT: 74621, 32802
[2019-04-17] MEDS: Ropivacaine 0.5% 30 ML Vial (10:45)
--- NOTE | 2019-04-17 10:55 | PCM.OPRPT ---
Report of Operation Date of Procedure: 04/17/19 Pre-Operative Diagnosis: Pelvic Pain and Severe Endometriosis Post-Operative Diagnosis: Pelvic Pain and Severe Endometriosis Surgery/Procedure Performed:: Diagnostic Laparoscopy, Left Salpingo-Oophorectomy, Appendectomy Description of Surgical Findings:: 4 to 5 cm left ovary with endometrioma present. Endometriosis implants across the anterior abdominal wall and in the cul-de-sac but minimal adhesive disease noted. Normal-appearing right fallopian tube and ovary. Normal-appearing appendix. inpatient nursing aide: Katy Francois Type of Anesthesia:: General - Endotracheal Anesthesiologist: Liset Menezes Specimen's removed: Left fallopian tube and ovary, appendix Estimated Blood Loss (mL): Minimal Fluids Replaced: Crystalloid Description of Procedure: Surgeon: Tim Briones MD, FACOG Co-Surgeon: Abhi Encarnacion FACS (appendectomy) Indications: This is a 23 year old patient who has the above diagnosis. The patient had a laparoscopy about a year ago which showed endometriosis. Her left fallopian tube is also known to be blocked presumably from endometriosis. Medications helped her pain for a while but recently she has had severe left lower quadrant pain despite Orilissa. Given this she desires we proceed with left salpingo-oophorectomy. An appendectomy is also planned given that she has endometriosis. The patient understands that her pain may recur on the right side at some point in the future. All questions were answered to consider the patient well-informed. Procedure: The patient was taken to the operating room where after induction of general anesthesia, she was placed in the dorsolithotomy position and prepped and draped in the usual sterile fashion. The bladder was drained of approximately 50 cc of clear yellow urine with a catheter. Anterior cervix was grasped with the tenaculum. Conn cannula was placed and attention was turned toward the laparoscopic portion of the procedure. Approximately 20 cc of half percent ropivacaine was injected subumbilically, suprapubically and midway between. A 5 mm bladeless trocar was placed subumbilically and intraperitoneal placement confirmed. After CO2 insufflation was complete, a 5 mm bladeless trocar was introduced suprapubically. The above findings were noted. A 10/12 mm blade less port was introduced midway between these 2 ports. Each fallopian tube was identified to its fimbriated end and an Enseal device was used to divide the infundibulopelvic ligament on the left to the uterus. Left tube and ovary were removed in pieces through the 10/12 mm port site. At this point Dr. Encarnacion performed his portion of the procedure which is dictated separately. Fascia of the 10/12 mm port site was closed with [id number] 0 Vicryl suture. Laparoscopic instruments with as much CO2 gas as possible were removed and incisions were closed with interrupted 4-0 Monocryl suture. Steri-Strips placed across the incision. Vaginal instruments were removed. Patient tolerated procedure well was taken to recovery room in satisfactory condition. Sponge instrument and needle counts were all reportedly correct. Estimated blood loss for the case was minimal. There were no apparent complications of the surgery. Cefotan 2 g IV was given prior to beginning the operative procedure Specimens to pathology was left tube and ovary and appendix. Grafts/Implants Used: None - Complications None - Admit VTE Documentation VTE Present on Admission: Yes VTE Mechan Device Prophylaxis: SCD's
[2019-04-17 11:19] VITALS: BP 111/59; BP 112/66; PULSE 67; RESP 20; TEMP 36.4; O2SAT 97
[2019-04-17 11:30] VITALS: BP 112/66; BP 93/59; PULSE 59; RESP 14; O2SAT 98
[2019-04-17 11:45] VITALS: BP 112/66; BP 98/54; PULSE 61; RESP 16; O2SAT 100
[2019-04-17 11:49] VITALS: BP 112/66; BP 94/54; PULSE 76; RESP 16; TEMP 36.8; O2SAT 99
--- NOTE | 2019-04-17 12:00 | OP.PCM_ITS ---
Problem List (1) Pelvic pain Status: Acute Report of Operation Date of Procedure: 04/17/19 Pre-Operative Diagnosis: Chronic pelvic pain Post-Operative Diagnosis: Same Surgery/Procedure Performed:: Laparoscopic appendectomy Specimen's removed: Appendix Description of Procedure: The first part of the procedure was performed by Dr. Briones please see his operative note for details. The appendix was elevated and the mesoappendix was taken down with the Enseal. The base the appendix was taken with the stapler. The appendix was placed into a bag and removed through the 12 mm port. The staple line was inspected and was hemostatic. The ports were removed and the fascia at the 12 mm port was closed with an interrupted [id number] 0 Vicryl suture. Skin incisions were anesthetized and closed with interrupted Monocryl sutures as well as Steri- Strips and bandages. Patient tolerated the procedure well was brought to PACU. - Admit VTE Documentation VTE Mechan Device Prophylaxis: SCD's
[2019-04-17] MEDS: oxyCODONE 5 MG Tablet PO (12:31)
--- NOTE | 2019-04-17 12:54 | PCM.DC.TUB ---
Discharge Diet: No Restrictions - Increase fluid intake for the next 48 hours. Discharge Activity: Return to Normal Activity, May Drive - when you are no longer taking pain/narcotic medicines., May Shower, May Take a Tub Bath May resume sexual activity in: 1-2 weeks Additional Activity Instructions:: Ambulate often the next week after surgery. Nothing in the vagina for 5 days. Call your doctor if your incision/area has: Continuous Slow Oozing, Sudden Increased Bleeding, Increased Pain/ Swelling, Increased Redness, Foul Smelling Discharge Call your doctor if you observe: Fever of 101 or Higher, Inability to urinate, Inability to have a bowel movement, Using more than one pad per hour Allergies/Adverse Reactions: Allergies No Known Allergies Allergy (Verified 04/17/19 08:16) Medications to take at Discharge Elagolix Sodium [Orilissa] 1 tab PO BID 01/01/19 Multivitamin [Multiple Vitamins] 1 ea PO DAILY 04/10/19 cholecalciferol (vitamin D3) 1,250 mcg (50,000 unit) capsule 1,250 mcg PO DAILY 04/12/19 Oxycodone [Oxyir] 5 mg PO Q6H PRN PRN 7 Days #10 tab 04/17/19 The following prescriptions were given: Oxycodone [Oxyir] 5 mg PO Q6H PRN PRN 7 Days #10 tab PRN Reason: Pain Score 6-10/10 Transmission Status: Received by [facility] Class[facility] #30 - [place] Primary Care Physician: Murtaza Mcclure MD [Primary Care Provider] - Test Results: Test results from this visit will be discussed in further detail at your follow-up appointment, if applicable. Please Follow Up With: Tim Briones MD - [phone] When: 2-3 weeks
[2019-04-17 13:24] VITALS: BP 112/66; BP 89/54; PULSE 63; RESP 16; TEMP 37.1; O2SAT 100
== END 2019-04-17 13:27 | disposition home or self-care (01) ==
LOC: SDC 08:02 → AC 08:04
PROVIDERS: Anesthesiology; Surgery; Family Provider Family Medicine; PCP Family Medicine; Referring Provider Obstetrics & Gynecology; Visit Provider Obstetrics & Gynecology
PROC: (CPT 58720; principal; 2019-04-17 09:15)
PROC: 0DTJ4ZZ Resection of Appendix, Percutaneous Endoscopic Approach (ICD-10-PCS; CPT 44970; 2019-04-17 09:15)
DX: N80.3 Endometriosis of pelvic peritoneum (principal); N80.1 Endometriosis of ovary; R10.2 Pelvic and perineal pain; G89.29 Other chronic pain
CPT/HCPCS: 00840; 44970; 58661; 36415; 81025; 84703; 85027; 85610; 85730; 86850; 86900; 86901; 88305; 88307; J7120; C1760; J2405

== ENCOUNTER → 2020-08-02 | Outpatient (CLI) | payer OTHER, SELFPAY ==
[2020-08-06 20:18] LABS: HPV Reflexed? NOT INDICATED
== END | disposition home or self-care (01) ==
LOC: LABSPEC 13:13
PROVIDERS: PCP Family Medicine; Visit Provider Obstetrics & Gynecology
DX: Z12.4 Encounter for screening for malignant neoplasm of cervix (principal)
CPT/HCPCS: 88175; G0145

== ENCOUNTER 2020-11-04 08:43 | Day surgery (SDC) | payer OTHER, SELFPAY ==
[2020-11-01 12:03] LABS: Prothrombin Time (Protime)PT. 12.6 SECONDS (11.7-14.9)
[2020-11-01 12:04] LABS: Partial Thromboplast Time 25.5 Seconds (24.1-36.2)
[2020-11-01 12:07] LABS: Hematocrit 39.1 % (37-47); Mean Corp Hgb Conc 33.2 g/dL (32-36); Mean Corpuscular Hgb 31.6 pg (27.0-32.0); Mean Corpuscular Volume 95.1 fL (81-99); Mean Platelet Vol. 10.1 fl (6.2-12.0); Platelet Count 253 K/mm3 (150-450); RBC Distribution Width CV 11.7 % (11.6-14.6); RBC Distribution Width SD 40.4 fl (35.1-43.9); Red Blood Count 4.11 M/mm3 (4.2-5.4); White Blood Count 7.5 K/mm3 (4.4-11.0)
[2020-11-01 12:24] LABS: AST(SGOT) 13 U/L (15-37); Alanine Aminotransfer ALT/SGPT 26 U/L (13-56); Albumin, Serum 3.7 g/dL (3.2-5.0); Alkaline Phosphatase 41 U/L (45-117); Bilirubin, Direct 0.12 mg/dL (0.00-0.30); Globulin 3.6 g/dL (2.2-4.2); Protein, Total 7.3 g/dL (6.4-8.2)
[2020-11-01 12:28] LABS: Internal QC Validated? YES +Cl - CLEAR BKGD; Pregnancy, Serum, hCG Quali. NEGATIVE Negative
--- NOTE | 2020-11-03 20:43 | HP.PCM_ITS ---
History and Physical Date of Admission: 11/04/20 Surgical History and Physical Tiny Garcia, a 25 year old female 0 0 0 0 0, presents for Laparoscopic right salpingo-oophorectomy on November 04, 2020 at 1:00. -- Recurrent Pelvic Pain and Endometriosis; Prior LSO -- Tiny presents for concerns regarding return of endometriosis symptoms with a lot of pelvic pain. Pelvic Pain/Endometriosis Pain which began >6 months ago. Tiny claims it started gradually and has been worsening. It occurs intermittantly. It is located in the lower abdomen. Tiny characterizes it to be non-radiating. Tiny characterizes the quality cramping. Tiny characterizes the quality sharp. Tiny characterizes the quality searing. Babs rity is moderate and not improving. Additional comments are: Had prior left salpingo-oophorectomy and appendectomy earlier this year. Pain subsided for several months then returned. Now unbearable. Declines further Orilissa or Lupron treatment wants definitive therapy. MEDICATIONS HISTORY: Current medications prescribed by our practice are: 1. Sprintec (28) 0.25 mg-35 mcg tablet, One pill by mouth once a day ALLERGIES: No Known Allergies Infections - Vaccines Illnesses - Migraines Accidents - None Hospitalizations - None Review of Systems: GENERAL - Denies fever, or chills SKIN - Denies rash, new skin lesions, or change in moles EYES - Denies blurred vision, or change in visual acuity EARS - Denies ear pain, or difficulty hearing NOSE - Denies nasal congestion, discharge, or bleeding MOUTH - Denies sore throat, or difficulty swallowing NECK - Denies pain or swelling RESPIRATORY - Denies shortness of breath, cough, wheezing CARDIOVASCULAR - Denies palpitations, chest pain, orthopnea, PND, peripheral edema, syncope or claudication GASTROINTESTINAL - abdominal pain GENITOURINARY - Denies dysuria, frequency of urination, urgency, or hesitancy MUSCULOSKELETAL - Denies joint or muscle pain, or back pain NEUROLOGICAL - Denies localized numbness, weakness, or tingling PSYCHIATRIC - denies depression or anxiety symptoms ENDOCRINE - denies heat or cold intolerance or weight loss or gain HEMATO-IMMUNOLOGIC - denies easy bruising, bleeding or recurrent infections SOCIAL HISTORY: Alcohol Use - RARELY Smoking - Uses Vapor Pen Diet - no special diet Lifestyle - moderate stress lifestyle and single Exercise - active Seat Belt Use - always 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 05/30/2018 dx laparoscopy, drainage of Left ovarian endometrioma, chrompertubation ; Tim Briones M.D. - 2. 04/17/2019 dx laparoscopy, LSO, appendectomy ; Tim Briones M.D. - PHYSICAL EXAM BP- 120/72 Sitting, Right arm, regular cuff Temp- 98.4 Taken Orally Weight- 145.35971 lbs Height- 65 inch BMI:24.3 CONSTITUTIONAL - NAD, well nourished, and well developed SKIN - No rash, lesions, or ulcers HEENT - Normocephalic, PERRLA, EOMI NECK - No nodes, no nuchal rigidity and thyroid normal size and texture LYMPH NODES - Palpation of lymph nodes in neck and groins within normal limits LUNGS - CTA x2 without wheezes, crackles or rales CARDIAC - Regular rate and rhythm without rubs, murmurs, or gallops ABDOMEN - Without hepatosplenomegaly, distention, masses, rebound, or guarding; normal bowel sounds; no hernias EXTREMITIES - No edema or calf tenderness NEUROLOGICAL - Cranial nerves II-XII grossly intact PSYCHIATRIC - A and O to time, place, person, mood and affect External Genitial Vagina - non-tender without lesions Urethra/Urethral Meatus - non-tender Bladder - increased tenderness Vagina - vaginal felix are pink and moist without loss of rugae and no evidence of atropy Cervix - Marked CMT Uterus - increased tenderness and nulliparous size 5 cm & wt 70 g Adnexa - increased tenderness both adnexa and no masses ASSESSMENT/PLAN: 1. Endometriosis Of Pelvic Peritoneum, Pelvic Pain and Unspec Severe and patient unable to tolerate any longer. We discussed treatment options including further expectant management, continuing OCPs or Depo-Provera, using Orilissa or Lupron, or proceeding with more definitive surgery such as a RSO or even an RSO with hysterectomy. We discussed that if both ovaries are removed that ovarian preservation could be performed but patient declines due to cost. She just wants her pain to be less and desires we proceed with an RSO leaving the uterus in place for possible egg donation in the future. All questions were answered including the need for hormone replacement therapy in the form of control pills and or HRT for an indefinite period of time and all questions were answered.
[2020-11-04] VITALS (8 sets, daily range): BP systolic 86–114; BP diastolic 57–74; PULSE 53–100; RESP 10–40; TEMP 36.2–36.6; O2SAT 97–100; BMI 23.3
--- NOTE | 2020-11-04 | OV_PTH ---
PATIENT: PREMA JACKSON LOC: [facility] [place] U#:[id number] AGE/SX: 25/F ROOM: RE11/04/[address]: Dr. Tim Briones MD : [id number] BED: DIS: 11/04/2020 SPEC #: [id number] RECD: 11/04/20 14:19 STATUS: RATNA REQ #: [id number] ALFIE: 11/04/20 00:[address]: Tim Briones DEPT: SURGICAL PATHOLOGY RECD BY: Crow Sullivan ENTERED: 11/05/20 12:01 SP TYPE: OVARY OTHR DR: Dr. Murtaza Mcclure MD Tissues: Right ovary Procedures: Surgery Specimen Level IV HEADER OPERATION: Laparoscopic salpingo-oophorectomy PRE-OP DIAGNOSIS: Endometriosis of pelvic peritoneum, pelvic pain TISSUE SUBMITTED: Right ovary and fallopian tube MICROSCOPIC DIAGNOSIS Right ovary and fallopian tube, salpingo-oophorectomy: Ovary with corpus luteal cysts, corpora albicantia and rare benign inclusion cysts. Fallopian tube ? benign paratubal cyst. AM:slade 11/06/2020 MICROSCOPIC DESCRIPTION Slides are reviewed. GROSS DESCRIPTION Received in fixative is one container labeled with the patient's name and designated right fallopian tube and ovary. The specimen consists of portions of pink-persaud right fallopian ranging in size from 0.7 cm and 3 cm. Serial sections of the ovarian fragments do not reveal mass lesions. Several small cysts ranging in size from 0.5 to 1 cm are present. The fallopian tube measures 6 cm in length and 0.7 cm in average diameter. No tubo-ovarian adhesions are seen. Press Puller sections are submitted in three cassettes as follows: 1 & 2 ? ovary, 3 ? fallopian tube, 4-8 ? remainder of specimen. / AM:slade 11/05/2020 TC:5 CPT: 72457
[2020-11-04 09:09] LABS: Internal QC Validated? YES +Cl - CLEAR BKGD; Pregnancy, Urine Negative Negative
[2020-11-04] MEDS: Lactated Ringers 1,000 ML 100 ML IV (09:25)
[2020-11-04] MEDS: Ropivacaine 0.5% 30 ML Vial (11:15)
[2020-11-04] MEDS: Cefotetan 2 GM in 0.9% NS 100 ML IV (11:15)
--- NOTE | 2020-11-04 11:30 | PCM.OPRPT ---
Report of Operation Date of Procedure: 11/04/20 Pre-Operative Diagnosis: Severe Endometriosis Post-Operative Diagnosis: Severe Endometriosis Surgery/Procedure Performed:: Laparoscopic Right Salpingo-Oophorectomy Description of Surgical Findings:: Uterus with absent left fallopian tube and ovary. Normal right fallopian tube and ovary with multiple patches of powder burn endometriosis throughout the pelvis including in the cul-de-sac and over the bladder consistent with severe endometriosis. Surgeon: Tim Briones carton and can supply supervisor: Katy Francois Type of Anesthesia: General (Endotracheal) Anesthesiologist: Zeferino Lopez Specimen's removed: Right fallopian tube and ovary Estimated Blood Loss (mL): Minimal Fluids Replaced: Crystalloid Description of Procedure: Surgeon: Tim Briones MD, FACOG Indications: This is a 25 year old patient who has the above diagnosis of severe endometriosis. She has tried multiple treatment treatments including Lupron and Orilissa with success but she can no longer afford these medications. She just wants to have the pain gone. She is aware of the permanent nature of this procedure which will render her unable to have genetic children of her own; she was also offered the option of oocyte cryopreservation but declines this option. She also understands that she will need to be on hormone replacement therapy for an indefinite period of time. She also understands that this procedure may not help with the pain that she has been having. All questions were answered to consider the patient well-informed. Procedure: The patient was taken to the operating room where after induction of general anesthesia, she was placed in the dorsolithotomy position and prepped and draped in the usual sterile fashion. The bladder was drained of approximately 50 cc of clear yellow urine with a catheter. Anterior cervix was grasped with the tenaculum. Conn cannula was placed and attention was turned toward the laparoscopic portion of the procedure. Approximately 30 cc of half percent ropivacaine was injected subumbilically, suprapubically and midway between. A 5 mm bladeless trocar was placed subumbilically and intraperitoneal placement confirmed. After CO2 insufflation was complete, a 10/12 mm bladeless trocar was introduced suprapubically. The above findings were noted. A 5 mm bladeless port was then placed midway between these 2 ports for tubal manipulation. The right fallopian tube was identified to its fimbriated end and an Enseal device was used to divide the mesosalpinx to the uterus. Right tube and ovary were removed through the lower 10/12 mm port in pieces. The peritoneal cavity and upper abdomen were examined and noted to be normal except for powder burn endometriosis present. Photographs were taken. Laparoscopic instruments with as much CO2 gas as possible were removed and incisions were closed with interrupted 4-0 Monocryl suture. Steri-Strips placed across the incision. Vaginal instruments were removed. The patient tolerated the procedure well was taken to recovery room in satisfactory condition and sponge instrument and needle counts were all reportedly correct. Estimated blood loss for the case was minimal. There were no apparent complications of the surgery. Cefotetan 2 g IV was given prior to beginning the operative procedure. Specimens to pathology was right fallopian tube and ovary. Grafts/Implants Used: None Complications None Admit VTE Documentation VTE Present on Admission: Yes VTE Mechan Device Prophylaxis: SCD's
--- NOTE | 2020-11-04 11:39 | PCM.DC ---
Discharge Instructions Diet Discharge Diet: No restrictions (Increase fluid intake for the next 48 hours.) and - (Increase fluid intake for 48 hours.) Activity Discharge Activity: May Shower and May Take a Tub Bath May resume sexual activity in: 1 week Lifting Restrictions: Less than 25 pounds for 2 weeks Dressing / Incision Call your doctor if your incision/area has: Continuous Slow Oozing, Sudden Increased Bleeding, Increased Pain/ Swelling, Increased Redness and Foul Smelling Discharge Call your doctor if you observe: Fever of 101 or Higher, Inability to urinate, Inability to have a bowel movement and Using more than 1 pad per hour Remove Dressing in: leave until fall off Additional Dressing/Incision Instructions:: Okay to shower over the Steri-Strips tapes. They are for your comfort. If they fall off its okay to replace them with Band-Aids if you desire. Follow Up Care Please Follow Up With: Tim Briones MD When: 2 to 3 weeks for a postop appointment. Test Results: Test results from this visit will be discussed in further detail at your follow-up appointment, if applicable. Discharge Plan Admission Primary Reason for Your Visit: Right Tube and Ovary Removal Attending Provider: Tim Briones Primary Care Provider: Murtaza Mcclure Discharge Orders/Prescriptions Prescriptions: New oxycodone 5 mg capsule 5 mg PO Q6H PRN (Reason: pain) 7 Days Qty: 5 RF: 0 Continued multivitamin 1 EACH tablet 1 ea PO DAILY RF: 0 norgestimate-ethinyl estradiol [[place]] 0.25-35 mg-mcg tablet 1 tab PO DAILY RF: 0 cholecalciferol (vitamin D3) [Vitamin D3] 125 mcg (5,000 unit) Tablet 10,000 unit PO DAILY RF: 0 Referrals / Follow Up: Murtaza Mcclure MD [Primary Care Provider] - Disposition Disposition (needs filled in before D/C Order can be placed): Home, Self Care
--- NOTE | 2020-11-04 11:45 | SUR.PHASEI ---
UPON AWAKENING AFTER PACU ARRIVAL, PATIENT HYPERVENTILATING, AGITATED, STATES SHE'S HAVING A PANIC ATTACK, COMFORT MEASURES AND REASSURANCE PROVIDED, UNABLE TO CONSOLE PATIENT. Jeremiah LILLY, ADMINISTERED VERSED. DR FISHER NOTIFIED.
== END 2020-11-04 13:44 | disposition home or self-care (01) ==
LOC: SDC 08:43 → AC 08:44
PROVIDERS: Anesthesiology; PCP Family Medicine; Referring Provider Obstetrics & Gynecology; Visit Provider Obstetrics & Gynecology
PROC: (CPT 58720; principal; 2020-11-04 10:15)
DX: N83.11 Corpus luteum cyst of right ovary (principal); N83.291 Other ovarian cyst, right side; N80.3 Endometriosis of pelvic peritoneum
CPT/HCPCS: 00840; 58661; 36415; 80076; 81025; 84703; 85027; 85610; 85730; 86850; 86900; 86901; 87426; 88305; C9803; J7120; C1760; J2405